=== PATIENT | female | born 1985 | race Caucasian/White ===

== ENCOUNTER 2023-06-06 11:10 | Emergency (ER) | payer BC, MEDICAID, SELFPAY ==
[2023-06-06] VITALS (36 sets, daily range): BP systolic 117–187; BP diastolic 86–125; PULSE 62–100; RESP 15–25; TEMP 36.5; O2SAT 98; BMI 22.5
--- NOTE | 2023-06-06 11:33 | ECG_ITS ---
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
--- NOTE | 2023-06-06 11:33 | ED.GENADUL1 ---
HPI - General Adult General Chief complaint: Headache Stated complaint: HIGH BLOOD PRESSURE/HEADACHE/NAUSEOUS Time Seen by Provider: 06/06/23 11:33 Source: patient Mode of arrival: walk-in Limitations: no limitations History of Present Illness HPI narrative: patient has been measuring high BP for the last 2 weeks. She also has history of migraines that developed about 9 years ago. She presents with headache for the last 2-3 days and also has high BP today. Slight nausea without vomiting. No recent injury to the head or neck. No visual changes or ringing in the ears. She does not take anything for HTN and has never been diagnosed with HTN. Related Data Home Medications Medication Instructions Recorded Confirmed buspirone 5 mg tablet 5 mg PO BID 06/06/23 06/06/23 fluoxetine 40 mg capsule 40 mg PO DAILY 06/06/23 06/06/23 norethindrone 1 mg-ethinyl 1 tab PO DAILY 06/06/23 06/06/23 estradiol 20 mcg (21)-iron 75 mg (7) tablet (Junel FE 11/02 (28)) topiramate 50 mg tablet (Topamax) 50 mg PO DAILY 06/06/23 06/06/23 Previous Rx's Medication Instructions Recorded lisinopril 10 mg tablet 10 mg PO DAILY #30 tabs 06/06/23 sumatriptan succinate 50 mg tablet 50 mg PO Q2H PRN migraine headache 06/06/23 (Imitrex) #20 tabs Allergies Allergy/AdvReac Type Severity Reaction Status Date / Time No Known Drug Allergies Allergy Verified 06/06/23 11:20 PFSH PFSH Social History Smoking status: Never smoker Exam Narrative Exam Narrative: Nurses notes and vital signs reviewed and patient is not hypoxic. afebrile General: Well-appearing and in no apparent distress. Skin: Warm, dry, no pallor noted. Head: Normocephalic, atraumatic. Neck: Supple, non-tender. Eye: Pupils are equal, round and EOMI. No scleral icterus. no nystagmus Cardiovascular: Regular Rate and Rhythm without murmur, gallop or rub. Respiratory: No accessory muscle use or respiratory distress. Lungs are clear to auscultation, no wheezing, rales or rhonchi Musculoskeletal: normal ROM Neurological: A&O x4. No cranial nerve dysfunction observed. No truncal ataxia. Moves all extremities. Sensation intact. Psychiatric: Cooperative and interactive. Normal mood and affect. Constitutional Vital Signs, click to edit/add: Last Vital Signs Temp 97.7 F 06/06/23 11:20 Pulse 78 06/06/23 15:20 Resp 19 06/06/23 15:20 BP 139/99 H 06/06/23 15:00 Pulse Ox 98 06/06/23 11:21 O2 Del Method Room Air 06/06/23 11:20 Course Vital Signs Vital signs: Vital Signs Temperature 97.7 F 06/06/23 11:20 Pulse Rate 100 H 06/06/23 11:20 Respiratory Rate 18 06/06/23 11:20 Blood Pressure 150/110 H 06/06/23 11:20 Pulse Oximetry 98 06/06/23 11:20 Oxygen Delivery Method Room Air 06/06/23 11:20 Temperature 97.7 F 06/06/23 11:20 Pulse Rate 78 06/06/23 15:20 Respiratory Rate 19 06/06/23 15:20 Blood Pressure 139/99 H 06/06/23 15:00 Pulse Oximetry 98 06/06/23 11:21 Oxygen Delivery Method Room Air 06/06/23 11:20 Medical Decision Making MDM Narrative Medical decision making narrative: Patient was placed on electronic device monitor and EKG obtained. Blood drawn and sent for evaluation. the patient was ordered to receive IV labetalol for her hypertension. She is also ordered to receive IV Toradol and IV Zofran for her headache. Potassium slightly decreased so she was given oral Potassium. No improvement in the patient's symptoms after receiving the first round of meds. She was ordered to receive IV benadryl and solumedrol. Her BP only minimally decreased so I ordered her to receive low dose IV Vasotec. This helped bring her BP closeer to desired level. Patient sill head unchaged headache and receive multiple rounds of meds. She finally got some improvement from 8/10 at arrival to 02/20. She then received IV Magnesium and her headache further improved. Plan is to place the patient on oral Lisinopril and have her follow up with her PCP. ED return for any worrisome symptoms. Lab Data Lab results reviewed: Yes I reviewed the patient's lab results Labs: Lab Results 06/06/23 Range/Units 11:24 WBC 6.7 (4.0-11.0) 10^3/uL RBC 4.72 (4.20-5.40) 10^6/uL Hgb 14.7 (12.0-16.0) g/dL Hct 42.5 (36.0-48.0) % MCV 90.0 (81.0-99.0) fL MCH 31.1 (26.7-34.0) pg MCHC 34.6 (29.9-35.2) g/dL RDW 12.9 (11.0-15.0) % Plt Count 311 (150-450) 10^3/uL MPV 10.1 (9.5-13.5) fL Neut % (Auto) 63.8 (43.0-75.0) % Lymph % (Auto) 26.4 (20.5-60.0) % [place] % (Auto) 7.8 (1.7-12.0) % Eos % (Auto) 0.9 (0.9-7.0) % Baso % (Auto) 1.0 (0.2-2.0) % Neut # (Auto) 4.3 (1.4-6.5) 10^3/uL Lymph # (Auto) 1.8 (1.2-3.8) 10^3/uL [place]field # (Auto) 0.5 (0.3-0.8) 10^3/uL Eos # (Auto) 0.1 (0.0-0.7) 10^3/uL Baso # (Auto) 0.1 (0.0-0.1) 10^3/uL Abs Immat Gran (auto) 0.01 (0.00-0.03) 10^3/uL Imm/Tot Granulo (auto) 0.1 (0.0-0.5) % Sodium 140 (136-145) mmol/L Potassium 3.2 L (3.5-5.1) mmol/L Chloride 103 (98-107) mmol/L Carbon Dioxide 26.0 (21.0-32.0) mmol/L Anion Gap 14.2 BUN 8.0 (7.0-18.0) mg/dL Creatinine 0.82 (0.55-1.02) mg/dL Est GFR ( Amer) >60 (>=60) Est GFR (Non-Af Amer) >60 (>=60) BUN/Creatinine Ratio 9.8 Glucose 105 (74-106) mg/dL Calcium 8.5 (8.5-10.1) mg/dL ECG Data Attestation: I personally reviewed and interpreted this ECG as follows: Interpretation: EKG interpretation: Emergency Department physician interpretation. Normal sinus rhythm at 85bpm. Normal axis, normal intervals and no ST segment elevation or depression. normal EKG. Discharge Plan Discharge Chief Complaint: Headache Clinical Impression: Headache, High blood pressure Patient Disposition: Home, Self-Care Time of Disposition Decision: 15:39 Prescriptions / Home Meds: New lisinopril 10 mg tablet 10 mg PO DAILY Qty: 30 0RF sumatriptan succinate [Imitrex] 50 mg tablet 50 mg PO Q2H PRN (Reason: migraine headache) Qty: 20 0RF Rx Instructions: do not exceed 4 doses per 24 hrs No Action topiramate [Topamax] 50 mg tablet 50 mg PO DAILY buspirone 5 mg tablet 5 mg PO BID fluoxetine 40 mg capsule 40 mg PO DAILY norethindrone-e.estradiol-iron [June FE 11/02 (28)] 1 mg-20 mcg (21)/75 mg (7) tablet 1 tab PO DAILY Instructions: Acute Headache (ED), Hypertension (ED) Stand Alone Forms: Portal Instructions Referrals: BERNARDO VILLAVICENCIO [Primary Care Provider] - 1 week
[2023-06-06 12:00] LABS: Basophils Absolute Auto 0.1 10^3/uL (0.0-0.1); Eosinophils Absolute Auto 0.1 10^3/uL (0.0-0.7); Eosinophils Percent Auto 0.9 % (0.9-7.0); Hematocrit 42.5 % (36.0-48.0); Hemoglobin 14.7 g/dL (12.0-16.0); Immature Granulocytes Abs Auto 0.01 10^3/uL (0.00-0.03); Immature Granulocytes Pct Auto 0.1 % (0.0-0.5); Lymphocytes Absolute Auto 1.8 10^3/uL (1.2-3.8); Lymphocytes Percent Auto 26.4 % (20.5-60.0); Mean Corpuscular HGB Conc 34.6 g/dL (29.9-35.2); Mean Corpuscular Hemoglobin 31.1 pg (26.7-34.0); Mean Platelet Volume 10.1 fL (9.5-13.5); Monocytes Absolute Auto 0.5 10^3/uL (0.3-0.8); Monocytes Percent Auto 7.8 % (1.7-12.0); Neutrophils Absolute Auto 4.3 10^3/uL (1.4-6.5); Neutrophils Percent Auto 63.8 % (43.0-75.0); Platelet Count 311 10^3/uL (150-450); Red Blood Count 4.72 10^6/uL (4.20-5.40); Red Cell Distribution Width 12.9 % (11.0-15.0); White Blood Count 6.7 10^3/uL (4.0-11.0)
[2023-06-06 12:03] LABS: Anion Gap 14.2; BUN Creatinine Ratio 9.8; Calcium 8.5 mg/dL (8.5-10.1); Chloride 103 mmol/L (98-107); Estimated GFR (African America >60 (>=60); Estimated GFR (Non-African Ame >60 (>=60); Glucose 105 mg/dL (74-106); Potassium 3.2 mmol/L (3.5-5.1); Sodium 140 mmol/L (136-145)
[2023-06-06] MEDS: KETOROLAC TROMETHAMINE 30 MG/ML VIAL IVP (12:25)
[2023-06-06] MEDS: LABETALOL HCL 20 MG/4 ML SYRINGE IVP (12:25)
[2023-06-06] MEDS: ONDANSETRON PF 4 MG/2 ML VIAL IV ×2 (12:26→13:57)
[2023-06-06] MEDS: POTASSIUM CHLORIDE 10 MEQ ER TABLET 40 MEQ PO (12:43)
[2023-06-06] MEDS: METHYLPREDNISOLONE SOD SUCC PF 125 MG/2 ML VIAL IVP (13:29)
[2023-06-06] MEDS: ENALAPRILAT DIHYDRATE 1.25 MG/ML VIAL 0.625 MG IV (13:30)
[2023-06-06] MEDS: DIPHENHYDRAMINE HCL 50 MG/ML (1ML) VIAL 25 MG IV (13:30)
[2023-06-06] MEDS: PROMETHAZINE HCL 25 MG/ML VIAL 12.5 MG IV (13:56)
[2023-06-06] MEDS: MAGNESIUM SULFATE/D5W 1 GM/100 ML PIGGYBACK IV (15:31)
== END 2023-06-06 16:22 | disposition home or self-care (01) ==
PROVIDERS: Emergency Provider Emergency Medicine; PCP Nurse Practitioner Family
DX: R51.9 Headache, unspecified (principal); I10 Essential (primary) hypertension; Z79.899 Other long term (current) drug therapy
CPT/HCPCS: 36415; 80048; 85025; 93005; 96365; 96375; 96376; 99285; J2930

== ENCOUNTER 2023-07-08 08:30 | Outpatient (OUT) | payer BC, MEDICAID, SELFPAY ==
[2023-07-08 08:49] LABS: Alanine Aminotransferase 26 U/L (14-59); Albumin Level 3.6 g/dL (3.4-5.0); Alkaline Phosphatase 71 U/L (46-116); Anion Gap 14.1; Aspartate Amino Transferase 15 U/L (15-37); BUN Creatinine Ratio 13.2; Bilirubin Total 0.4 mg/dL (0.2-1.0); Calcium 8.6 mg/dL (8.5-10.1); Carbon Dioxide 24.5 mmol/L (21.0-32.0); Chloride 105 mmol/L (98-107); Estimated GFR (African America >60 (>=60); Estimated GFR (Non-African Ame >60 (>=60); Globulin 3.6 g/dL; Glucose 99 mg/dL (74-106); Potassium 3.6 mmol/L (3.5-5.1); Sodium 140 mmol/L (136-145); Total Protein 7.2 g/dL (6.4-8.2)
== END 2023-07-08 08:31 | disposition home or self-care (01) ==
LOC: LAB 08:30
PROVIDERS: PCP Nurse Practitioner Family; Visit Provider Nurse Practitioner Family
DX: I10 Essential (primary) hypertension (principal)
CPT/HCPCS: 36415; 80048; 80053

== ENCOUNTER 2024-04-30 07:29 | Outpatient (OUT) | payer BC, SELFPAY ==
[2024-04-30 07:55] LABS: Basophils Absolute Auto 0.1 10^3/uL (0.0-0.1); Basophils Percent Auto 0.8 % (0.2-2.0); Eosinophils Absolute Auto 0.1 10^3/uL (0.0-0.7); Eosinophils Percent Auto 1.5 % (0.9-7.0); Hematocrit 42.2 % (36.0-48.0); Hemoglobin 14.2 g/dL (12.0-16.0); Immature Granulocytes Abs Auto 0.01 10^3/uL (0.00-0.03); Immature Granulocytes Pct Auto 0.1 % (0.0-0.5); Lymphocytes Absolute Auto 2.7 10^3/uL (1.2-3.8); Lymphocytes Percent Auto 36.8 % (20.5-60.0); Mean Corpuscular HGB Conc 33.6 g/dL (29.9-35.2); Mean Corpuscular Hemoglobin 30.8 pg (26.7-34.0); Mean Corpuscular Volume 91.5 fL (81.0-99.0); Mean Platelet Volume 9.6 fL (9.5-13.5); Monocytes Absolute Auto 0.6 10^3/uL (0.3-0.8); Monocytes Percent Auto 8.6 % (1.7-12.0); Neutrophils Absolute Auto 3.9 10^3/uL (1.4-6.5); Neutrophils Percent Auto 52.2 % (43.0-75.0); Platelet Count 314 10^3/uL (150-450); Red Blood Count 4.61 10^6/uL (4.20-5.40); Red Cell Distribution Width 12.6 % (11.0-15.0); White Blood Count 7.4 10^3/uL (4.0-11.0)
[2024-04-30 09:03] LABS: Alanine Aminotransferase 19 U/L (14-59); Albumin Level 3.5 g/dL (3.4-5.0); Alkaline Phosphatase 77 U/L (46-116); Aspartate Amino Transferase 14 U/L (15-37); BUN Creatinine Ratio 12.5; Bilirubin Total 0.5 mg/dL (0.2-1.0); Calcium 8.6 mg/dL (8.5-10.1); Carbon Dioxide 29.6 mmol/L (21.0-32.0); Chloride 103 mmol/L (98-107); Chol HDL Ratio 2.6; Cholesterol 146 mg/dL (<=200); Estimated GFR (African America >60 (>=60); Estimated GFR (Non-African Ame >60 (>=60); Globulin 3.5 g/dL; Glucose 95 mg/dL (74-106); HDL Cholesterol 57 mg/dL (40-60); Potassium 3.6 mmol/L (3.5-5.1); Sodium 139 mmol/L (136-145); Thyroid Stimulating Hormone 1.533 uIU/mL (0.358-3.740); Triglycerides 45 mg/dL (<=150)
[2024-04-30 11:27] LABS: Creatinine Urine Random 233.22 mg/dL (20.00-300.00); Microalbumin Urine Random <1.3 mg/dL (<=30.0)
== END 2024-04-30 07:30 | disposition home or self-care (01) ==
LOC: LAB 07:29
PROVIDERS: PCP Nurse Practitioner Family; Visit Provider Nurse Practitioner Family
DX: Z00.00 Encounter for general adult medical examination without abnormal findings (principal); I10 Essential (primary) hypertension; F41.8 Other specified anxiety disorders; G43.909 Migraine, unspecified, not intractable, without status migrainosus
CPT/HCPCS: 36415; 80053; 80061; 82043; 82570; 84443; 85025

== ENCOUNTER 2024-12-15 08:24 | Outpatient (OUT) | payer BC, SELFPAY ==
--- NOTE | 2024-12-15 09:20 | ECG_ITS ---
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 Measurements Intervals [place] Rate: 79 P: 58 [place]: 170 QRS: 75 QRSD: 71 T: 71 QT: 345 QTc: 397 Interpretive Statements SINUS RHYTHM Compared to ECG 06/06/2023 11:29:53 No significant changes Electronically Signed On 12-15-2024 13:06:06 EST by DEANDRA HINOJOSA M.D.
== END 2024-12-15 08:25 | disposition home or self-care (01) ==
LOC: PST 08:25
PROVIDERS: PCP Nurse Practitioner Family; Visit Provider Obstetrics & Gynecology
DX: Z01.810 Encounter for preprocedural cardiovascular examination (principal); N92.0 Excessive and frequent menstruation with regular cycle; N93.9 Abnormal uterine and vaginal bleeding, unspecified; R10.2 Pelvic and perineal pain; R87.810 Cervical high risk human papillomavirus (HPV) DNA test positive
CPT/HCPCS: 93005

== ENCOUNTER 2024-12-25 11:10 | Day surgery (SDC) | payer BC, SELFPAY ==
[2024-12-15 10:17] VITALS: BP 118/83; PULSE 89; TEMP 36.4; O2SAT 98; BMI 23.1
[2024-12-25] VITALS (11 sets, daily range): BP systolic 93–122; BP diastolic 65–88; PULSE 93–126; TEMP 36.3–36.6; O2SAT 97–100; BMI 23.1
[2024-12-25 11:22] LABS: Basophils Absolute Auto 0.1 10^3/uL (0.0-0.1); Basophils Percent Auto 0.9 % (0.2-2.0); Eosinophils Absolute Auto 0.1 10^3/uL (0.0-0.7); Eosinophils Percent Auto 1.2 % (0.9-7.0); Hematocrit 41.9 % (36.0-48.0); Hemoglobin 14.2 g/dL (12.0-16.0); Immature Granulocytes Abs Auto 0.01 10^3/uL (0.00-0.03); Immature Granulocytes Pct Auto 0.2 % (0.0-0.5); Lymphocytes Absolute Auto 1.7 10^3/uL (1.2-3.8); Lymphocytes Percent Auto 29.4 % (20.5-60.0); Mean Corpuscular HGB Conc 33.9 g/dL (29.9-35.2); Mean Corpuscular Hemoglobin 30.3 pg (26.7-34.0); Mean Corpuscular Volume 89.3 fL (81.0-99.0); Mean Platelet Volume 9.7 fL (9.5-13.5); Monocytes Absolute Auto 0.5 10^3/uL (0.3-0.8); Neutrophils Absolute Auto 3.4 10^3/uL (1.4-6.5); Neutrophils Percent Auto 59.3 % (43.0-75.0); Platelet Count 290 10^3/uL (150-450); Red Blood Count 4.69 10^6/uL (4.20-5.40); Red Cell Distribution Width 12.6 % (11.0-15.0); White Blood Count 5.8 10^3/uL (4.0-11.0)
[2024-12-25 11:49] LABS: HCG Quantitative <1 mIU/mL
[2024-12-25] MEDS: LACTATED RINGER'S SOLUTION 1,000 ML 50 ML IV ×2 (11:51→17:30)
--- NOTE | 2024-12-25 16:30 | PC.NURSE ---
Patient states she has no pain
--- NOTE | 2024-12-25 16:48 | PM.ONB ---
Brief Operative Note Date of procedure: 12/25/24 Pre-op diagnosis general: cervical dysplasia, aub, menorrhagia, dyspareunia, pelvic pressure, pvc syndrome Post-op diagnosis: same as pre-op Procedure: NAME OF PROCEDURE: robotic assisted Laparoscopic bilateral salpingectomy, with Madelyn endometrial ablation with hysteroscopy. leep procedure PROCEDURE: The patient was taken back to the OR where she was prepped and draped in the normal sterile fashion after being placed in the dorsal lithotomy position, after being placed under general anesthesia without difficulty. a weighted speculum was then placed into the vagina. Pap and endometrial bx were performed without difficultyThe anterior lip was grasped with a single tooth tenaculum. The patient was then sounded to approximatley 9cm. The patient was gently sounded using Hegar dilators and the hysteroscope was passed through the cervix into the uterus where both ostia were seen. No gross evidence of polyps, fibroids or malignancy. The cervical length was noted to be 4cm. The Madelyn ablation apparatus was set to approximately 5cm in length. This was placed in through the cervix and into the uterus. After the seal was tested, at that time the total ablation of 120 seconds was performed with the Madelyn without difficulty. All instruments were removed from the vagina. please note endometrial bx was performed prior to ablation using pipette, then leep was performed A weighted speculum was placed into the patient's vagina. The anterior lip of the cervix was identified and grasped with a single-tooth tenaculum. The patient's cervix was then copiously irrigated using vinegar.? Then, a Lugol Solution was also placed onto the patient's cervix which demonstrated increased uptake of the Lugol solution at the [? 4] o?clock and [? 11] o?clock positions.? At that time, the LEEP portion of the procedure was performed, including both the [? 4] o?clock and [11? ] o?clock positions. The ectocervix was sent out to Pathology. The patient's cervix was then coagulated using suction cautery. Excellent hemostasis was assured.? Monsel Solution was then placed onto the patient's cervix to help maintain adequate hemostasis. All instruments were removed from the patient's vagina. A wet sponge stick was placed into the patient's vagina. Attention was then turned to the patient's abdomen, where a scalpel was used to make a small infraumbilical incision. The S retractors were then used to dissect the underlying layers until the fascia could be seen. The fascia was then grasped with Miguelangel clamps and tented up. A knife was then used to make a small incision to the fascia. The muscle was identified, at that time two sutures of #0 Vicryl on a GI needlewas then used and placed through the fascia. The peritoneum was then identified and entered bluntly. The 10-4 Payam was then placed into the patient's abdomen. This was confirmed with direct visualization of the bowel, using the laparoscope. The patient's abdomen was then insufflated using approximately 4 liters of CO2 gas. Survey of the patient's abdomen demonstrated normal appearing ovaries, uterus and tubes. A second and third lateral robotic ports, which was 8mm in size, was then placed laterally after incision was made in the skin under direct visualization. the robotic arms were engaged. The patient's tube on the patient's right side was identified. The tube was then tented up using a grasper. The ligasure was used to transect and coagulate the mesosalpingx from the fimbriated end to the insertion at the uterus, the tube was amputated and removed in its entirety.? Excellent hemostasis was noted. ?This was performed on the contralateral sideas well. The lateral ports were then moved under direct visualization with excellent hemostasis. The abdomen was deinsufflated. All instruments were removed from the patient's abdomen. The fascia was closed using the #0 Vicryl on GI needle. The skin was closed using 4-0 Vicryl subcuticularly. All instruments were removed from the patient's vagina as well. The patient was taken out of the dorsal lithotomy position and placed in the supine position and taken to recovery in stable condition. Sponge, lap and needle counts were correct x2. ??? Anesthesia: KYAW Surgeon: Ephraim Spencer Tractor Engine Mechanic: Mimi Sandra Estimated blood loss (mL): 10 Pathology: other (tubes and ectocervical tissue) Condition: stable Disposition: PACU Urinary Catheter Management Urinary Catheter Management Urethral: Cath placed during this visit: no
[2024-12-25] MEDS: HYDROCODONE/ACET 5-325 MG TABLET 1 TAB PO (18:13)
== END 2024-12-25 18:18 | disposition home or self-care (01) ==
PROVIDERS: Visit Provider Obstetrics & Gynecology
PROC: (CPT 840; principal; 2024-12-25 12:35)
PROC: (CPT 840; 2024-12-25 12:35)
PROC: (CPT 840; 2024-12-25 12:35)
DX: Z30.2 Encounter for sterilization (principal); N92.0 Excessive and frequent menstruation with regular cycle; N93.9 Abnormal uterine and vaginal bleeding, unspecified; R10.2 Pelvic and perineal pain; N87.9 Dysplasia of cervix uteri, unspecified; R87.810 Cervical high risk human papillomavirus (HPV) DNA test positive; I10 Essential (primary) hypertension; N94.89 Other specified conditions associated with female genital organs and menstrual cycle
CPT/HCPCS: 57522; 58563; 58661; 36415; 84702; 85025; 88302; 88305; 88307; J0131; J1100; J1171; J1885; J2250; J2371; J2405; J2704; J3010

== ENCOUNTER 2025-08-22 08:50 | Emergency (ER) | payer BC, SELFPAY ==
[2025-08-22 08:55] VITALS: BP 142/99; PULSE 111; O2SAT 98; BMI 20.9
--- OUTSIDE RECORDS SUMMARY | 2025-08-22 09:00 | XMS_ITS | CCD ---
Author Organization [facility] Care Team Providers Care Lithographic General Worker Name Role Phone Bell Iglesias Unavailable Kaple, Yolanda Unavailable KAPLE, YOLANDA Admitting Unavailable KAPLE, YOLANDA Attending Unavailable KAPLE, YOLANDA Primary Care Unavailable KAPLE, YOLANDA Consulting Unavailable KAPLE, YOLANDA Admitting Unavailable KAPLE, YOLANDA Attending Unavailable KAPLE, YOLANDA Primary Care Unavailable KAPLE, YOLANDA Consulting Unavailable KAPLE, YOLANDA Admitting Unavailable KAPLE, YOLANDA Attending Unavailable KAPLE, YOLANDA Primary Care Unavailable KAPLE, YOLANDA Consulting Unavailable GINA BRUNER M Referring Unavailable KAPLE, YOLANDA M Primary Care Unavailable KAPLE, YOLANDA M Referring Unavailable KAPLE, YOLANDA M Primary Care Unavailable KAPLE, YOLANDA M Referring Unavailable KAPLE, YOLANDA M Primary Care Unavailable Kaple Yolanda T[place]O Primary Care Provider KAPLE, YOLANDA M Primary Care Unavailable MARC, EMELYN M Referring Unavailable MARC, EMELYN M Attending Unavailable MARC, EMELYN M Referring Unavailable KAPLE, YOLANDA M Primary Care Unavailable MARC, EMELYN M Attending Unavailable MARC, EMELYN M Referring Unavailable KAPLE, YOLANDA M Primary Care Unavailable Unavailable Primary Care Provider Unavailabl e Kaple Yolanda TINOCO Primary Care Provider Ephraim Spencer DO Attending Provider Kaple, Yolanda Primary Care Unavailable Tj, Ephraim Attending Unavailable Tj, Ephraim Admitting Unavailable TJ, EPHRAIM Attending Unavailable TJ, EPHRAIM Attending Unavailable CLAIRE WALSH Attending Unavailable TJ, EPHRAIM Attending Unavailable Yolanda Yancey APRN Primary Care Provider Yolanda Yancey APRN Attending Provider Medications Current Medications MedicationDrug Class(es)DatesSig (Normalized)Sig (Original)amoxicillin 875 mg oral tablet (1 source)Penicillin-class AntibacterialStart: 41-32-7644crji 1 tablet by mouth every twelve hoursAmoxicillin 875 MG 1 tablet Orally every 12 hrs for 7 days Sep, ActiveAmoxicillin / Clavulanate (4 sources)Penicillin-class AntibacterialStart: 86-17-4541dzyo 1 tablet by mouth every twelve hoursAugmentin 875-125 MG 1 tablet Orally every 12 hrs for 10 days Nov, Activecephalexin 500 mg oral tablet (4 sources)Cephalosporin AntibacterialStart: 67-00-3425ener 1 tablet by mouth every eight hoursCephalexin 500 MG 1 tablet Orally every 8 hrs for 7 days Dec, Activedicyclomine hydrochloride 10 mg oral capsule (3 sources)AnticholinergicStart: 22-68-6326phpz 1 capsule by mouth three times daily as needed for paindicyclomine (Bentyl) 10 MG capsule Indications: Pelvic pain in female Take 1 capsule (10 mg) by mouth 3 (three) times a day as needed (pelvic pain) for up to 30 doses 30 capsule 03/29/2025 Activefluconazole 150 mg oral tablet (1 source)Azole AntifungalStart: 08-29-2024 End: 61-41-2733nyvy 1 tablet by mouth oncefluconazole (DIFLUCAN) 150 mg tablet Indications: Yeast infection of the vagina Take 1 tablet (150 mg total) by mouth once for 1 dose. 1 tablet 08/29/2024 08/29/2024 ActiveFLUoxetine 10 mg oral tablet (20 sources)Serotonin Reuptake InhibitorStart: 14-60-2606fxht 1 tablet by mouth once dailyFluoxetine 10 mg tablet Active 10 MG PO Daily April 18, 2025 12:00am Complies with drug therapyStart: 84-70-3895hoji 1 capsule by mouth once dailyFLUoxetine (PROzac) 40 MG capsule Take 40 mg by mouth Daily 10/08/2024 ActiveStart: 07-06-2024 End: 97-91-2200sltz 1 capsule by mouth once dailyFluoxetine 40 mg capsule Discontinued 0 .ROUTE .COMPLEX 90 July 06, 2024 4:21pm March 17, 2025 10:09am TAKE 1 CAPSULE BY MOUTH EVERY DAYStart: 04-23-2024 End: 34-54-1638jvmy 1 capsule by mouth once dailyFluoxetine 40 mg capsule Discontinued 40 MG PO Daily April 23, 2024 7:22am July 06, 2024 4:21pm Start: 12-23-2023 End: 44-81-5974ayny 1 capsule by mouth once dailyFluoxetine 40 mg capsule Discontinued 0 .ROUTE .COMPLEX 90 December 23, 2023 7:17am April 23, 2024 7:22am TAKE 1 CAPSULE BY MOUTH EVERY DAYStart: 12-23-2023 End: 39-85-9982sshs 1 capsule by mouth once dailyFluoxetine 40 mg capsule Discontinued 1 CAP PO Daily December 23, 2023 12:00am December 23, 2023 7:17am FreeTextSig: TAKE 1 CAPSULE BY MOUTH EVERY DAY; Note: Source Status: Taking; Refills: 1; Qty: 90 Capsule; Provider: Martin Guerrero ( )Start: 76-76-3134agcd 1 capsule by mouth every twenty-four hoursFLUoxetine HCl 40 MG 1 capsule Orally Once a day for 30 day(s) Apr, Activetake 2 capsules by mouth in the morningFLUoxetine (PROzac) 20 mg capsule Take 2 capsules (40 mg total) by mouth in the morning. Activetake 1 capsule by mouth every twenty-four hoursFluoxetine 20 MG 1 capsule in the morning Orally Once a day ActiveJunel (3 sources) ActiveJunel 11/02 (2 sources)11/02 Activemedical supply, miscellaneous ([facility] (5 sources)medical supply, miscellaneous ([facility] by miscellaneous route. Clindamycin ActivemethylPREDNISolone (10 sources)CorticosteroidStart: 27-81-7604wckqywDBCKKIQdqgvz (Medrol Dospak) 4 MG tablets Indications: URI, acute Day 1: 6 tablets Day 2: 5 tablets Day 3: 4 tablets Day 4: 3 tablets Day 5: 2 tablets Day 6: 1 tablet 21 tablet 12/31/2024 ActiveStart: 94-76-0116wdlwnuOLMHNVEfflnv 4 MG as directed Orally Once a day for 6 days Sep, ActiveStart: 35-32-0971zstjbyRAVNSLGumzir 4 MG as directed Orally Once a day for 6 days Dec, ActivemetroNIDAZOLE 500 mg oral tablet (2 sources)Nitroimidazole AntimicrobialStart: 08-29-2024 End: 96-79-0287kgva 1 tablet by mouth at bedtimemetroNIDAZOLE (FLAGYL) 500 mg tablet Indications: BV (bacterial vaginosis) Take 1 tablet (500 mg total) by mouth in the morning and at bedtime for 7 days. 14 tablet 08/29/2024 09/05/2024 ActiveStart: 28-62-3828zvww 1 tablet by mouth every twelve hoursmetroNIDAZOLE 500 MG 1 tablet Orally Twice a day for 7 days Aug, Activeminocycline 100 mg oral capsule (5 sources)Tetracycline-class Drugtake 1 capsule by mouth once dailyminocycline (MINOCIN,DYNACIN) 100 mg capsule Take 100 mg by mouth daily. Activenorethindrone 0.35 mg oral tablet (17 sources)Start: 99-23-6876xgct 1 tablet by mouth in the morningnorethindrone (Micronor) 0.35 MG tablet Take 0.35 mg by mouth in the morning. 09/30/2024 ActiveStart: 51-81-6490ukdv 1 tablet by mouth in the morningnorethindrone (MICRONOR) 0.35 mg tablet Indications: Surveillance of contraceptive pill Take 1 tablet (0.35 mg total) by mouth in the morning. 28 tablet 09/15/2024 Active Start: 09-03-2023 End: 00-45-2094htmo 1 tablet by mouth in the morningnorethindrone (MICRONOR) 0.35 mg tablet Indications: Well woman exam with routine gynecological exam Take 1 tablet (0.35 mg total) by mouth in the morning. 28 tablet 12 09/03/2023 09/15/2024 Discontinued (Reorder)SUMAtriptan 25 mg oral tablet (5 sources)Serotonin-1b and Serotonin-1d Receptor AgonistSUMAtriptan (IMITREX) 25 mg tablet Take 1 tablet (25 mg total) by mouth once as needed for migraine. May repeat in 2 hours if unresolved. Do not exceed 200 mg in 24 hours. Active topiramate 25 mg oral tablet (18 sources)Start: 53-50-9175trmz 1 tablet by mouth every twenty-four hours Topiramate 25 MG 1 tablet Orally Once a day for 30 day(s) Apr, Active take 1 tablet by mouth in the morning, then take 1 tablet by mouth at bedtime topiramate (TOPAMAX) 50 mg tablet Take 1 tablet (50 mg total) by mouth in the morning and 1 tablet (50 mg total) before bedtime. ActiveUbrelvy 100 MG (1 source)Start: 28-92-5579Tcfvojv 100 MG 1 tablet may take second dose at least 2 hours after first dose as needed Orally Once a day for 30 day(s) May, ActivevalACYclovir 500 mg oral tablet (17 sources)Herpesvirus Nucleoside Analog DNA Polymerase Inhibitor, Herpes Simplex Virus Nucleoside Analog DNA Polymerase Inhibitor, Herpes Zoster Virus Nucleoside Analog DNA Polymerase InhibitorStart: 09-30-2024 End: 34-76-1611erqIBEperaeg (Valtrex) 500 MG tablet Take 500 mg by mouth if needed (as needed) 11/04/2024 ActiveStart: 12-27-2959lffa 1 tablet by mouth in the morning, then take 1 tablet by mouth at bedtimevalACYclovir (VALTREX) 500 mg tablet Indications: HSV (herpes simplex virus) anogenital infection Take 1 tablet (500 mg total) by mouth in the morning and 1 tablet (500 mg total) before bedtime. 60 tablet 3 02/01/2023 Active Completed/Discontinued Medications MedicationDrug Class(es)DatesSig (Normalized)Sig (Original)azithromycin 250 mg oral tablet (5 sources)Macrolide AntimicrobialStart: 12-31-2024 End: 28-58-1051bfiuxqyubzif (Zithromax Z-Michael) 250 MG tablet Indications: URI, acute As directed 6 tablet 12/31/2024 03/29/2025 Discontinued (Therapy completed)busPIRone hydrochloride 5 mg oral tablet (20 sources)Start: 04-23-2024 End: 01-54-4829qivp 1 tablet by mouth twice dailyBuspirone 5 mg tablet Discontinued 5 MG PO Twice daily April 23, 2024 7:35am April 23, 2024 7:37am Start: 04-23-2024 End: 99-20-2427tdid 1 tablet by mouth once dailyBuspirone 5 mg tablet Discontinued 5 MG PO Twice daily April 23, 2024 7:34am April 23, 2024 7:36am 5 mg orally daily;Start: 04-23-2024 End: 00-18-6478uusm 1 tablet by mouth twice dailyBuspirone 10 mg tablet Discontinued 10 MG PO Twice daily 60 April 23, 2024 12:00am March 17, 2025 10:09amStart: 02-27-2024 End: 79-18-3318zvms 1 tablet by mouth twice dailyBuspirone 5 mg tablet Discontinued 0 .ROUTE .COMPLEX 180 February 27, 2024 10:15am April 23, 2024 7:22am TAKE 1 TABLET BY MOUTH TWICE A DAYStart: 02-27-2024 End: 28-51-1305ctng 1 tablet by mouth twice dailyBuspirone Discontinued 0 .ROUTE .COMPLEX 180 February 27, 2024 10:15am April 23, 2024 7:22am TAKE 1 TABLET BY MOUTH TWICE A DAYStart: 04-26-2022 End: 07-21-1159ygyc 1 tablet by mouth twice dailyBuspirone 5 mg tablet Discontinued 1 TAB PO Twice daily February 27, 2024 12:00am February 27, 2024 10:15am FreeTextSig: TAKE 1 TABLET BY MOUTH TWICE A DAY; Note: Source Status: Taking; Refills: 1; Qty: 180 Tablet; Provider: Martin Guerrero ( ) escitalopram 5 mg oral tablet (3 sources)Serotonin Reuptake InhibitorStart: 04-13-2025 End: 79-30-2901jkvf 1 tablet by mouth once dailyEscitalopram Oxalate 5 mg tablet Discontinued 0 .ROUTE .COMPLEX 90 April 13, 2025 3:40pm April 18, 2025 9:58am TAKE 1 TABLET BY MOUTH EVERY DAYStart: 03-17-2025 End: 21-73-1570fzww 1 tablet by mouth once dailyEscitalopram Oxalate (Lexapro) 5 mg tablet Discontinued 5 MG PO Daily March 17, 2025 12:00am April 13, 2025 3:41pmNorethindrone-E.Estradiol-Iron (4 sources)EstrogenStart: 04-23-2024 End: 22-63-6754Vxotjtewyehad-E.Estradiol-Iron (11/02 (28)) 1 mg-20 mcg (21)/75 mg (7) tablet Discontinued TAB PO April 23, 2024 12:00am April 23, 2024 7:07am Medication Name: 11/02; Note: Source Status: Taking; Provider: Martin Guerrero ( )lisinopril 10 mg oral tablet (20 sources)Angiotensin Converting Enzyme InhibitorStart: 04-23-2024 End: 02-39-9744fhkt 1 tablet by mouth once dailyLisinopril 10 mg tablet Discontinued 10 MG PO Daily October 15, 2024 9:24am April 26, 2025 10:57am Start: 04-13-2024 End: 67-23-9736vedt 1 tablet by mouth once dailyLisinopril 10 mg tablet Discontinued 0 .ROUTE .COMPLEX April 13, 2024 11:28am April 23, 2024 7:22am TAKE 1 TABLET BY MOUTH DAILYStart: 07-09-2023 End: 86-01-5073jznp 1 tablet by mouth once dailyLisinopril 10 mg tablet Discontinued 1 TAB PO Daily January 10, 2024 12:00am January 10, 2024 2:25pm FreeTextSi tablet Orally Once a day; Note: Source Status: Refill; Refills: 1; Qty: 90 Tablet; Provider: Martin Guerrero MTriamcinolone (14 sources)CorticosteroidStart: 47-23-1333GKYARUQ - 10 mg Dec, 40 mg ubrogepant 100 mg oral tablet (5 sources)Start: 04-23-2024 End: 25-27-5458Wlfieuvgql 100 mg tablet Discontinued 1 TAB PO Daily April 23, 2024 12:00am April 23, 2024 7:07amFreeTextSi tablet may take second dose at least 2 hours after first dose as needed Orally Once a day; Note: Source Status: Continue; Refills: 2; Provider: Martin Guerrero MStart: 04-23-2024 End: 17-77-3067Beikouqpid Discontinued 1 TAB PO Daily April 23, 2024 12:00am April 23, 2024 7:07am FreeTextSi tablet may take second dose at least 2 hours after first dose as needed Orally Once a day; Note: Source Status: Continue; Refills: 2; Provider: Martin Schwartz 100 MG 1 tablet may take second dose at least 2 hours after first dose as needed Orally Once a day for 30 days Active Problems Active Problems Problem ClassificationProblemDateDocumented DateEpisodic/ChronicAbdominal pain (20 sources)Pelvic and perineal pain; Translations: [Pain in pelvis]Onset: 643835-79-5784BlencqszEzyirmy disorders (20 sources)Mixed anxiety and depressive disorder; Translations: [Other specified anxiety disorders]Onset: 04-23-2018 Resolved: 75-47-8130VtknlbiUmdydvuic infection; unspecified site (1 source)Other specified bacterial agents as the cause of diseases classified elsewhereEpisodicContraceptive and procreative management (2 sources)Oral contraception; Translations: [Encounter for surveillance of contraceptive pills]42-39-3869PtjccffnDzlghpxey hypertension (10 sources)Essential hypertension; Translations: [Essential (primary) hypertension]ChronicGenitourinary symptoms and ill-defined conditions (6 sources)Dysuria; Translations: [Unspecified abnormal findings in urine]Onset: 41-58-3950CplagrdnWujrrcgt; including migraine (20 sources)Migraine without aura, not refractory ; Translations: [Migraine without aura, not intractable, without status migrainosus]Onset: 05-10-2022 Resolved: 12-67-4244HylqqclYtqmxakdqfpr diseases of female pelvic organs (5 sources)Acute vaginitis; Translations: [Acute vaginitis]Onset: 08-27-2024 EpisodicMenstrual disorders (14 sources)Irregular periods; Translations: [Irregular menstruation, unspecified]Onset: 045280-91-5552RuymmzbMtcpq aftercare (2 sources)Surgical follow-up; Translations: [Encounter for follow-up examination after completed treatment for conditions other than malignant neoplasm]47-57-6229JnbmxcytTqxiv female genital disorders (1 source)Abnormal uterine bleeding; Translations: [Abnormal uterine and vaginal bleeding, unspecified]07-82-7552MywbuxaFeezk female genital disorders (2 sources)Other specified noninflammatory disorders of vagina; Translations: [Other specified noninflammatorydisorders of vagina]Onset: 24-66-8794Ufmroyik Other female genital disorders (2 sources)Vaginal discharge; Translations: [Other specified noninflammatory disorders of vagina]Onset: 761048-46-9397KrahjxaqHycmn nutritional; endocrine; and metabolic disorders (4 sources)Overweight in adulthood with body mass index of 25 or more but less than 30; Translations: [Body mass index (BMI) 26.0-26.9, adult]04-23-2024 EpisodicOther nutritional; endocrine; and metabolic disorders (1 source)Body mass index (BMI) 26.0-26.9, adult; Translations: [Body Mass Index 26.0-26.9, adult]61-66-6528KtuxhdkvHanha screening for suspected conditions (not mental disorders or infectious disease) (3 sources)Ultrasound scan abnormal; Translations: [Abnormal findings on diagnostic imaging of other specifiedbody structures]Onset: ChronicOther upper respiratory infections (3 sources)Acute maxillary sinusitis, unspecified; Translations: [Acute upper respiratory infection]Onset: 12-21-2021 Resolved: 36-60-7398NhgkxjfiVrorxo media and related conditions (1 source)Otitis media, unspecified, right earEpisodicResidual codes; unclassified (5 sources)History of bilateral breast implants; Translations: [Breast implant status]Onset: 587427-96-5977GtbekllSpjgrquv transmitted infections (not HIV or hepatitis) (1 source)Human papillomavirus deoxyribonucleic acid test positive, high risk on cervical specimen; Translations: [Cervical high risk human papillomavirus (HPV) DNA test positive]97-53-9985KfntrbacOvkxphcejtlr (3 sources)OTHER SPECIFIED COUGH; Translations: [OTHER SPECIFIED COUGH]Onset: 03-30-5751Jqvdbdreclon (1 source)Gynecologic ExamOnset: 03-48-5300Kvvwquy tract infections (1 source)Urinary tract infection, site not specifiedEpisodicViral infection (1 source)Anogenital herpesviral infection; Translations: [Anogenital herpesviral infection, unspecified]59-42-3681Rsacpbh Past or Other Problems Problem ClassificationProblemDateDocumented DateEpisodic/ChronicImmunizations and screening for infectious disease (1 source)Contact with and (suspected) exposure to other viral communicable diseasesOnset: 12-21-2021 Resolved: 91-46-0902PgyqdmshEifg disorders (5 sources)Mood disordersOnset: 09-03-2023 Resolved: 941869-95-7127Ppxgcvu (1 source)Candidiasis of vagina; Translations: [Yeast infection of the vagina] 95-58-9279AoqfsazyKdwkt circulatory disease (3 sources)Elevated blood-pressure reading, without diagnosis of hypertension; Translations: [ELEVATED BP READING W/O DX HTN]Onset: 05-10-2022 Resolved: 11-98-6622AikgtyyzXoatswue codes; unclassified (5 sources)H/O: ectopic ; Translations: [Personal history of other complications of , childbirth and the puerperium]Onset: 05-23-2021 21-01-4930DqyxjdlhJxwremmmezne (1 source)OTHER SPECIFIED COUGH; Translations: [OTHER SPECIFIED COUGH]Onset: 39-81-9021Reivlwssfcoe (2 sources)Onset: Results Test NameValueInterpretationReference RangeFacilityRECURRENT VAGINITIS (HTRX)on 29-79-5312CZWJMFKNP QMNWGCX74.41AbnormalNOMS HealthcareATOPOBIUM VAGINAEDetected AbnormalNOMS HealthcareBVAB 2,3 (BACTERIAL VAGINOSIS ASSOCIATED BACTERIA 2, 3); MOBILUNCUS OWH3PRSX HealthcareBVAB 2,3 (BACTERIAL VAGINOSIS ASSOCIATED BACTERIA 2, 3); MOBILUNCUS SPPNot detectedNOMS HealthcareCANDIDA ALBICANS, PARAPSILOSIS, CFYIVOOAEF9VXSW HealthcareCANDIDA ALBICANS, PARAPSILOSIS, TROPICALISNot detected NOMS HealthcareCANDIDA PKJSVQGZ9TZIU HealthcareCANDIDA GLABRATANot detectedNOMS HealthcareCANDIDA SMBOJC9GSCD HealthcareCANDIDA KRUSEINot detectedNOMS HealthcareCHLAMYDIA CGZOAFMXBYQ1RRWZ HealthcareCHLAMYDIA TRACHOMATISNot detected NOMS HealthcareERMB, C; MEFA16.78AbnormalNOMS HealthcareERMB, C; MEFADetected AbnormalNOMS HealthcareGARDNERELLA NQKDTHBHZ16.157AbnormalNOMS Healthcare GARDNERELLA VAGINALISDetectedAbnormalNOMS HealthcareInterpretation and review of laboratory resultsAbnormalNOMS HealthcareMEGASPHAERA (TYPES 1, 2)0NOMS HealthcareMEGASPHAERA (TYPES 1, 2)Not detectedNOMS HealthcareMYCOPLASMA TAGZGSIEFG6KCLU HealthcareMYCOPLASMA GENITALIUMNot detectedNOMS Healthcare NEISSERIA KEJFZJHUFYD9POHI HealthcareNEISSERIA GONORRHOEAENot detectedNOMS HealthcareTET B, TET M15.591AbnormalNOMS HealthcareTET B, TET MDetectedAbnormal NOMS HealthcareTRICHOMONAS VUGTUGDRT5RWOT HealthcareTRICHOMONAS VAGINALISNot detectedNOMS HealthcareNOMS HealthcareHCG ( test) Ql (U)on 03-29-2025 Interpretation and review of laboratory resultsNormalNONC HealthcarePreg Test, UrNegativeNegativeNOMS HealthcareNONC HealthcareUrinalysis macro (dipstick) panel (U)on 21-62-7694Xxksztczt, UANegativeNegative - 4(70) +++ mg/dLNOMS HealthcareBlood, UAPositiveNegative - 50 German/mcLNOMS HealthcareComment on above: traceClarity, UAClearNOMS HealthcareColor, UAYellowNOMS HealthcareGlucose, UA NegativeNegative - 2000(110) ++++ mg/dLNOMS HealthcareInterpretation and review of laboratory resultsAbnormalNONC HealthcareKetones, UANegativeNegative - 160(16) ++++ mg/dLNONC HealthcareLeukocytes, UAPositiveNegative - 500+++ Benjy/mcL NOMS HealthcareComment on above:smallNitrite, UANegativeNegative - PositiveNOMS HealthcarepH, UA75 - 9NOMS HealthcareProtein, UANegativeNegative - 2000(20) ++++ mg/dLNOMS HealthcareSpec Grav, UA1.021 - 1.03NOMS HealthcareUrobilinogen, UA0.2 0.2 - 12 mg/dLNOThedaCare [facility] Specimen: [id number] Received: 12/28/24 Status: LUIZA Khanna Num: [id number] Spec Type: Surgical Subm Dr: Ephraim Spencer Tissues: A Endocervix - Curettings (ENDOVERV CURRT) B Cone/Leep (ECTOCERV CONE) C Fallopian Tube - Sterilization (BILT FALL TUBE) Procedures: , Gross/Micro L5, Gross/Micro L4, Gross/Micro L2 Age/ Patient Sex Location Account Attending Physician Michelle Zuluaga 39/F [facility] [id number] Ephraim Spencer SPEC NUM: [id number] RECD: 12/28/24 STATUS: LUIZA MARIEAmol NUM: [id number] ANTONIETA: 12/25/[address]: Ephraim Spencer ENTERED: 12/28/[address] [facility] DR: Abdiel,Lab SPEC TYPE: Surgical DEPT: [facility] ENTERED BY: [id number] RECV BY: [id number] ORDERED: HE/12, Gross/Micro L5, Gross/Micro L4, Gross/Micro L2 ORDERED: HE/12, Gross/Micro L5, Gross/Micro L4, Gross/Micro L2 Pathological Diagnosis A, said to be endocervical biopsy tissue, endometrial ablation with Madelyn: -Mucus and blood clot with multiple small biopsy strips of the inactive to weakly proliferative type endometrial glandular epithelium and small mucosal tissue, exhibiting occasional mild ciliated metaplasia, without hyperplasia or atypia identified B, ectocervical tissue, LEEP excision: -Fragments of ectocervical mucosal tissue with mild squamous acanthosis including small foci of mild parabasal epithelial proliferation, suggesting minute foci of mild dysplasia, otherwise without any high-grade atypia identified -Transformation zone is focally represented -Focal mild chronic inflammation are also noticed consistent with active immune response C, bilateral fallopian tubes, bilateral salpingectomy: -Fimbriated longer fallopian tube without significant pathological changes -The smaller segment displays fibrovascular soft tissue with 1 tiny detached benign epithelial cluster without any other specific findings Specimen: [id number] Received: 12/28/24 Status: WMTiburcio Khanna Num: [id number] Spec Type: Surgical Subm Dr: Ephraim Spencer Tissues: A Endocervix - Curettings (ENDOVERV CURRT) B Cone/Leep (ECTOCERV CONE) C Fallopian Tube - Sterilization (BILT FALL TUBE) Procedures: HE/12, Gross/Micro L5, Gross/Micro L4, Gross/Micro L2 Patient: Michelle Zuluaga [id number] (Continued) Specimen: [id number] Received: 12/28/24 (Continued) Signed (signature on file) Luma Landa MD 12/29/24 1516 Specimen: [id number] Received: 12/28/24 Status: LUIZA Khanna Num: [id number] Spec Type: Surgical Subm Dr: Ephraim Spencer Tissues: A Endocervix - Curettings (ENDOVERV CURRT) B Cone/Leep (ECTOCERV CONE) C Fallopian Tube - Sterilization (BILT FALL TUBE) Procedures: , Gross/Micro L5, Gross/Micro L4, Gross/Micro L2 Patient: Michelle Zuluaga [id number] (Continued) Specimen: [id number] Received: 12/28/24-132 (Continued) Clinical Information Request for sterilization, abnormal uterine bleeding, pelvic pain Gross Description Part A is received in formalin labeled with the patients name, date of , and endocervical BX tissue is a Telfa pad with an adherent pale méndez mucoid material, admixed with feathery reagan-pink to red-brown tissue fragments, 2.5 x 1.5 x 0.3 cm in aggregate. The specimen is filtered and entirely submitted in a single cassette. (1, ns, BS25- 161 A) Part B is received in formalin labeled with the patients name, date of , and ectocervical tissue is a Telfa pad with 3 fragments of cervical conization specimen, 0.6 x 0.5 x 0.2 cm, 0.8 x 0.5 x 0.2 cm, and 2.3 x 1.3 x 0.5 cm. The largest specimen is crescent- shaped. The largest specimen is inked orange along the lesser curvature and black along the greater curvature with the 2 smaller fragments entirely inked black. The specimen is entirely submitted. Cassettes: B1?B2 Entirety of serially sectioned 2.3 cm fragment B3 Entirety of serially sectioned 0.8 cm fragment B4 Entirety of trisected 0.6 cm fragment (4, ns, LF30-824 B) Part C is received in formalin lab (more content not included)...NormalHollywood [facility] Center Physician GroupNORT[facility] 01-24-[address] [place], [place] [address] Electrocardiograph Report Signed Patient: MICHELLE ZULUAGA MR#: [id number] : 1985 Acct:[id number] Age/Sex: 39 / F ADM Date: 12/15/24 Loc: PST Attending Dr: Ephraim Spencer D.O. Ordering Physician: Ephraim Spencer D.O. 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 Measurements Intervals [place] Rate: 79 P: 58 GA: 170 QRS: 75 QRSD: 71 T: 71 QT: 345 QTc: 397 Interpretive Statements SINUS RHYTHM Compared to ECG 06/06/2023 11:29:53 No significant changes Electronically Signed On 12-15-2024 13:06:06 EST by DEANDRA HINOJOSA M.D. Dictated By: DEANDRA HINOJOSA M.D. Signed By: 12/16/24 0919 DD/ 1018 TD/TT: Adjunct Mathematics Instructor:TATEHRadiologviola, Radiologist, - 12/16/2024 [address] [place] [id number] Electrocardiograph Report Signed Patient: MICHELLE ZULUAGA MR#: [id number] : 1985 Acct:[id number] Age/Sex: 39 / F ADM Date: 12/15/24 Loc: PST Attending Dr: Ephraim Spencer D.O. Ordering Physician: Ephraim Spencer D.O. 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 Measurements Intervals [place] Rate: 79 P: 58 GA: 170 QRS: 75 QRSD: 71 T: 71 QT: 345 QTc: 397 Interpretive Statements SINUS RHYTHM Compared to ECG 06/06/2023 11:29:53 No significant changes Electronically Signed On 12-15-2024 13:06:06 EST by DEANDRA HINOJOSA M.D. Dictated By: DEANDRA HINOJOSA M.D. Signed By: 12/16/24 0919 DD/ 1018 TD/TT: Adjunct Mathematics Instructor: MIKHAIL [facility] 12-LEADOrdered By: Radiologist Radiology on 20-18-3800LOLQ [employer] Work Phone: ECG 12-LEADon 06-28-4354Fhpcepedv Study observation (narrative)[facility] HealthcareCT ABDOMEN AND PELVIS W CONTon 06-42-6169HG ABDOMEN AND PELVIS W CONTCT ABDOMEN AND PELVIS W CONT CT ABDOMEN AND PELVIS W CONT HISTORY: Pelvic pain, negative beta hCG, prominent vessels on ultrasound suggesting pelvic congestion syndrome COMPARISON: None TECHNIQUE: CT images of abdomen and pelvis obtained following administration of contrast. Automatedexposure control was utilized. All CT scans at this facility use dose modulation, iterative reconstruction, and/or weight based dosing when appropriate to reduce radiation dose to as low as reasonably achievable. FINDINGS: ABDOMINAL/PELVIC WALL: Small umbilical hernia measuring 1.2 cm in diameter. LOWER THORAX: The lung bases are clear. Small area of pleural nodularity in the posterior lower lung base which may represent pleural scarring. Recommend attention on follow-up examinations. The heart is normal in size. Bilateral breast implants. ESOPHAGUS/STOMACH: The esophagus is nondilated. No gastric wall defects. LIVER: Normal in size and configuration. No suspicious mass. Small hepatic cystic structures which are too small characterize, statistically benign. BILE DUCTS: No intrahepatic or extrahepatic bile duct dilation. GALLBLADDER: No calcified stones. Normal wall thickness. PANCREAS: No abnormal attenuation. No main pancreatic duct dilation. SPLEEN: No splenomegaly. ADRENAL GLANDS: No nodules. KIDNEYS/URETERS: No hydroureteronephrosis. The kidneys enhance symmetrically. No suspicious renal mass. BLADDER: Underdistended. REPRODUCTIVE ORGANS: Uterus is present. The right ovary is surgically absent. No adnexal masses. Multiple vascular collaterals in the pelvis and prominence of the left greater than right gonadal vein(2:54). BOWEL: No disproportionate dilation of the small or large bowel. The appendix is not enlarged. No periappendiceal fat stranding. PERITONEUM/RETROPERITONEUM: No fluid collection, ascites, or pneumoperitoneum. LYMPH NODES: No abdominal or pelvic lymphadenopathy by size criteria. VESSELS: No abdominal aortic aneurysm. BONES: No suspicious osseous lesions. L2 vertebral body sclerotic focus, indeterminate. IMPRESSION: 1. Multiple pelvic vascular collaterals with prominence of the left greater than right gonadal vein, likely reflecting pelvic congestion syndrome. 2. Indeterminate L2 vertebral body sclerotic focus. Consider further characterization with nonemergent dedicated lumbar spine radiographs. I, Hillary Hassan MD have personally reviewed the image(s) and agree with and/or edited the report Finalized by Hillary Hassan MD on 11/03/2024 11:49 AMNormalProBaylor Scott & White All Saints [facility] Fort WorthUS PELVIC WITH TRANSVAGINALon 28-49-9913UD PELVIC WITH TRANSVAGINALUS PELVIC WITH TRANSVAGINAL US PELVIC WITH TRANSVAGINAL: 10/15/2024 9:42 AM INDICATION: 39 years old Female. Pelvic pain. COMPARISON: None. TECHNIQUE: Transabdominal and transvaginal sonographic evaluation of the pelvis was performed. FINDINGS: Uterus appears anteverted and measures 8.4 x 5.8 x 3.6 cm. No uterine masses identified. Endometrium measures up to 3 mm. Advanced periuterine vessels are noted in addition to possible intrauterine peripherally located marked vascularity. The right ovary is surgically absent. The left ovary measures 2.9 x 2.7 x 2.1 cm with a 2.6 cm ovarian cyst. Flow is noted overlying the left ovary at the time scanning. No significant free fluid. IMPRESSION: Advanced periuterine and intrauterine vascular prominence raises concern for pelvic congestion syndrome. Correlate with history. Consideration to CT abdomen pelvis with IV contrast in order to interrogate the ovarian veins with subsequent interventional radiology consultation as indicated. Finalized by Maribel Loza MD on 10/16/2024 3:05 PMNormalGlenbeigh HospitalCytologyon 34-78-5800KmhgydijGdxpeqRozKebyhw Fremont HospitalComment on above:Result Comment: [facility] [address] [place] [address] Gynecologic Cytology Consultation Patient Name:MICHELLE ZULUAGA:1985 (Age: 39)Gender:FTaken:4Reported:10/19/2024Physician(s):Emelyn Tran, [facility]URE THERAPIST- [facility] ([phone])Copy To: Rec. #:[id number]: #[id number] Final Cytologic Interpretation ThinPrep Pap Test (Cervical): Satisfactory for evaluation. A transformation zone component is present. NEGATIVE FOR INTRAEPITHELIAL LESION OR MALIGNANCY. [facility]24 [place] [address], License number: [id number]. 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 The Pap test is primarily effective for the diagnosis and prevention of squamous cell carcinoma. Regular screening iscritical for prevention. ThinPrep liquid-based slides, which meet the Automated Process Operator criteria for automated screening, have been screened by the ThinPrep Imaging System (as of 06/30/07) along with an additional manual rescreening by a digital account supervisor and, if indicated, by a pathologist.HIGH RISK HPV W/GENOon 83-82-5753FPG 31+33+35+39+45+51+52+56+58+59+66+68 DNA VANCE+probe Ql (Cvx)HPV SPECIMEN TYPE ThinPrep HPV 16 Positive (qualifier value) HPV 18 Negative (qualifier value) OTHER HIGH RISK HPV Negative (qualifier value) HPV types 31,33,35,39,45,52,56,58,59,66 and 68 DNA were undetectable.NormalGlenbeigh HospitalComment on above: Performed By: #### [id number] #### [facility] ([id number]) [address], [place] [address] [facility] ([id number]) [address], [address] [place], [place] [address]RMBSXAMLI/GC BY PCRon 13-42-6682IRELTNXCT/GC BY PCRSPECIMEN SOURCE CERVIX CHLAMYDIA DNA(PCR) Negative (qualifier value) Chlamydia trachomatis not detected by nucleic acid amplification. This does not exclude the possibility of infection because results are dependent on adequate specimen collection. GONORRHOEAE DNA(PCR) Negative (qualifier value) Neisseria gonorrhoeae not detected by nucleic acid amplification. This does not exclude the possibility of infection because results are dependent on adequate specimen collection.Mad[facility] HealthComment on above:Performed By: #### CGS #### [facility] ([id number]) [address] [place], [place] [id number] PANEL PCRon [id number] PANEL PCRBACT. VAGINOSIS DNA Detected (qualifier value) Qualitative results are reported based on detection and quantitation of targeted organism markers which include: Lactobacillus spp. (L. crispatus and L. jensenii), Gardnerella vaginalis, Atopobium vaginae, Bacterial Vaginosis Associated Bacteria-2 (BVAB-2) and Megasphaera-1 DOROTA SPECIES DNA Detected (qualifier value) Dorota species result based on detection of one or more of the following species: C. albicans, C. tropicalis, C. parapsilosis or C. dubliniensis DOROTA KRUSEI DNA Not detected (qualifier value) No Dorota krusei detected DOROTA GLABRATA DNA Not detected (qualifier value) No Dorota glabrata detected TRICHOMONAS VAG DNA Not detected (qualifier value) No Trichomonas vaginalis detected NOTE BD MAX Vaginal Panel has not been evaluated for patients under 18 years old. Results for these patients should be reviewed and assessed in accordance with clinical presentation to determine patient diagnosis.NormalProMedica Blaine HospitalComment on above:Performed By: #### VPPCR #### [facility] ([id number]) [address] [place] [address], [address] [place], [place] [address]Fcekqdwd Cervical or vaginal smear or scraping studyOrdered By: Seda Genao on 89-16-1292ENMS HealthcareCULTURE URINEon 79-06-9049JQQHCIZ URINEIsolate 1 Escherichia coli >100,000 cfu/mL of ORGANISM 1 Escherichia coli ANTIBIOTIC M.I.C RX STATUS Ampicillin >=32 R F Ampicillin/Sulbactam 8 S F Piperacillin/Tazobactam <=4 S F Cefazolin <=4 S F Ceftazidime <=1 S F Ceftriaxone <=1 S F Ertapenem <=0.5 S F Imipenem <=0.25 S F Amikacin <=2 S F Gentamicin <=1 S F Tobramycin <=1 S F Ciprofloxacin <=0.25 S F Levofloxacin <=0.12 S F Nitrofurantoin <=16 S F Trimethoprim/Sulfamethoxazole <=20 S FNormalThe [facility] Cleveland Medical CenterComment on above:Performed By: #### URCX #### [facility] [address] [place] [address] Dr. Anny Kang SPUTUMon 15-44-0622UUAYODR SPUTUMCulture Observations: NORMAL RESPIRATORY JOSEPHINE.NormalThe [facility] CenterComment on above:Performed By: #### SPUTCX #### [facility] [address] [place] [address] Dr. Anny Kang URINEon 29-02-1865VGBDSEQ URINECulture Observations: LIGHT GROWTH OF MIXED GENITAL JOSEPHINE. NO POTENTIAL PATHOGENS SEEN.NormalOhiohealth Hardin Memorial HospitalComment on above:Performed By: #### URCX #### [facility] [address] [place] [address] Dr. Anny LandaRESPIRATORY PANEL PLUSon 36-38-9899SkozghmzpsMzu detectedNormal NOT DETECTEDThe [facility] CenterComment on above:Performed By: #### RSPLUS #### [facility] [address] [address] [address] Anny Johnson ParapertusisNot detectedNormalNOT DETECTEDThe [facility] CenterComment on above:Performed By: #### RSPLUS #### [facility] [address] [address] [address] Anny Johnson PertussisNot detectedNormalNOT DETECTEDThe [facility] Comment on above:Performed By: #### RSPLUS #### [facility] [address] [address] [address] Anny LandaChlamydia PneumoniaeNot detectedNormalNOT DETECTEDThe [facility] CenterComment on above:Performed By: #### RSPLUS #### [facility] [address] [address] [address] Anny LandaCoronavirus 229ENot detectedNormalNOT DETECTEDThe [facility] CenterComment on above:Performed By: #### RSPLUS #### [facility] [address] [address] [address] Anny LandaCoronavirus AQB3Zvm detectedNormalNOT DETECTEDThe [facility] CenterComment on above:Performed By: #### RSPLUS #### [facility] [address] [address] [address] Anny LandaCoronavirus QY70Fas detectedNormalNOT DETECTEDThe [facility] CenterComment on above:Performed By: #### RSPLUS #### [facility] [address] [address] [address] Anny LandaCoronavirus ZR96Ciy detectedNormalNOT DETECTEDThe [facility] CenterComment on above:Performed By: #### RSPLUS #### [facility] [address] [address] [address] Anny LandaInflfaustonbenji A H1Not detectedNormalNOT DETECTEDThe [facility] Comment on above:Performed By: #### RSPLUS #### [facility] [address] [address] [address] Anny Álvarez A H1 2009Not detectedNormalNOT DETECTEDThe [facility] CenterComment on above:Performed By: #### RSPLUS #### [facility] [address] [address] [address] Anny Álvarez A H3Not detectedNormalNOT DETECTEDThe [facility] Comment on above:Performed By: #### RSPLUS #### [facility] [address] [address] [address] Anny Álvarez BNot detectedNormalNOT DETECTEDThe [facility] Comment on above:Performed By: #### RSPLUS #### [facility] [address] [address] [address] Anny IsabelneumovirusNot detectedNormalNOT DETECTEDThe [facility] CenterComment on above:Performed By: #### RSPLUS #### [facility] [address] [address] [address] Anny Eid. PneumoniaeNot detectedNormalNOT DETECTEDThe [facility] CenterComment on above:Performed By: #### RSPLUS #### [facility] [address] [address] [address] Anny Valerio 1Not detectedNormalNOT DETECTEDThe [facility] CenterComment on above:Performed By: #### RSPLUS #### [facility] [address] [address] [address] Anny Valerio 2Not detectedNormalNOT DETECTEDThe [facility] Medical CenterComcorewell health ludington hospital on above:Performed By: #### RSPLUS #### [facility] [address] [address] [address] Anny Valerio 3Not detectedNormalNOT DETECTEDThe [facility] Medical CenterComcorewell health ludington hospital on above:Performed By: #### RSPLUS #### [facility] [address] [address] [address] Anny Valerio 4Not detectedNormalNOT DETECTEDThe [facility] Medical CenterComcorewell health ludington hospital on above:Performed By: #### RSPLUS #### [facility] [address] [address] [address] Anny Cespedes/EnterovirusDetectedAbnormalNOT DETECTEDThe [facility] on above:Performed By: #### RSPLUS #### [facility] [address] [place] [address] Dr. Anny Heath Header 1RESPIRATORY PANEL: VIRUSESMount St. [facility] Comment on above:Performed By: #### RSPLUS #### [facility] [address] [place] [address] Dr. Anny Heath Header 2RESPIRATORY PANEL: BACTERIANoWilson Street HospitalComment on above:Performed By: #### RSPLUS #### [facility] [address] [place] [address] Dr. Anny Phelan detectedNormalNOT DETECTEDThe [facility] on above:Performed By: #### RSPLUS #### [facility] [address] [place] [address] Dr. Anny Flores-CoV-2 (COVID-19) RNA VANCE+probe Ql (Unsp spec)Not detected NormalNOT DETECTEDThe [facility] CenterComment on above:Performed By: #### RSPLUS #### [facility] [address] [place] [address] Dr. Anny Correia AUTO DIFFon 35-29-3845YLWT #0.1 103/ulNormal0.0-0.1The [facility] on above:Performed By: #### CBC #### [facility] [address] [place] [address] Dr. Anny LandaBasophils/100 WBC (Bld)0.9 %Normal0.2-2.0The [facility] Comment on above:Performed By: #### CBC #### [facility] [address] [place] [address] Dr. Anny Hidalgo #0.2 103/ulNormal0.0-0.7The [facility] on above: Performed By: #### CBC #### [facility] [address] [place] [address] Dr. Anny Lernerosinophils/100 WBC (Bld)2.3 %Normal0.9-7.0The [facility] Comment on above:Performed By: #### CBC #### [facility] [address] [place] [address] Dr. Anny Lernerrythrocyte distribution width (RBC) [Ratio]13.1 %Sbuoni99.0-15.0 [facility] HospitalComment on above:Performed By: #### CBC #### [facility] [address] [place] [address] Dr. Anny LandaHematocrit (Bld) [Volume fraction]43.0 %Piojuk50.0-48.0The [facility] CenterComment on above:Performed By: #### CBC #### [facility] [address] [place] [address] Dr. Anny LandaHemoglobin (Bld) [Mass/Vol]14.7 g/eGNrwboc99.0-16.0The [facility] CenterComment on above:Performed By: #### CBC #### [facility] [address] [place] [address] Dr. Anny Duarte #0.01 10e3/ulNormal0.00-0.03The [facility] CenterComment on above:Performed By: #### CBC #### [facility] [address] [place] [address] Dr. Anny Duarte %0.2 %Normal0.0-0.5The [facility] CenterComment on above: Performed By: #### CBC #### [facility] [address] [place] [address] Dr. Anny IsabelH #3.0 103/ulNormal1.2-3.8The [facility] CenterComment on above:Performed By: #### CBC #### [facility] [address] [place] [address] Dr. Anny Isabelhocytes/100 WBC (Bld)46.8 %Mnrlzc62.5-60.0The [facility] CenterComment on above:Performed By: #### CBC #### [facility] [address] [place] [address] Dr. Anny DiezUAL DIFF REQNONormalThe [facility] CenterComment on above: Performed By: #### CBC #### [facility] [address] [place] [address] Dr. Anny Humphreys (RBC) [Entitic mass]30.6 dlJavxcg73.7-34.0The [facility] CenterComment on above:Performed By: #### CBC #### [facility] [address] [place] [address] Dr. Anny Humphreys (RBC) [Mass/Vol]34.2 g/jQElheaw26.9-35.2The [facility] HospitalComment on above:Performed By: #### CBC #### [facility] [address] [place] [address] Dr. Anny Ryan (RBC) [Entitic vol]89.4 sQIlyijh86.0-99.0The [facility] CenterComment on above:Performed By: #### CBC #### [facility] [address] [place] [address] Dr. Anny Langston #0.5 103/ulNormal0.3-0.8The [facility] CenterComment on above:Performed By: #### CBC #### [facility] [address] [place] [address] Dr. Anny Raineyocytes/100 WBC (Bld)8.3 %Normal1.7-12.0The [facility] Comment on above:Performed By: #### CBC #### [facility] [address] [place] [address] Dr. Anny Ramon #2.7 103/ulNormal1.4-6.5The [facility] CenterComment on above:Performed By: #### CBC #### [facility] [address] [place] [address] Dr. Anny Mohanutrophils/100 WBC (Bld)41.5 %Critically low43.0-75.0The [facility] CenterComment on above:Performed By: #### CBC #### [facility] [address] [place] [address] Dr. Yilan ChangPlatelet mean volume (Bld) [Entitic vol]9.6 fLNormal9.5-13.5The [facility] CenterComment on above:Performed By: #### CBC #### [facility] [address] [place] [address] Dr. Anny LandaPLT276 103/mvZqjfnf064-445Llo [facility] CenterComment on above: Performed By: #### CBC #### [facility] [address] [address] [address] Anny LandaRBC4.81 106/ulNormal4.20-5.40The [facility] CenterComment on above:Performed By: #### CBC #### [facility] [address] [place] [address] Dr. Anny LandaWBC6.4 103/ulNormal4.0-11.0The [facility] CenterComment on above: Performed By: #### CBC #### [facility] [address] [place] [address] Dr. Anny GoodID PROFILEon 11-96-3180JQUK-HDL RATIO NORMSEE Wilson Street HospitalComment on above:Result Comment: 3.3 - 4.4 LOW RISK 4.4 - 7.1 AVERAGE RISK 7.1 - 11.0 MODERATE RISK >11.0 HIGH RISKPerformed By: #### CMP, LIPID, TSH #### [facility] [address] [place] [address] Dr. Anny LandaCholesterol [Mass/Vol]159 mg/dLNormal<=200[facility] Comment on above:Performed By: #### CMP, LIPID, TSH #### [facility] [address] [place] [address] Dr. Anny Nathesterol in HDL [Mass/Vol]61 mg/dLCritically oipn31-86VtpOhiohealth Hardin Memorial HospitalComcorewell health ludington hospital on above:Performed By: #### CMP, LIPID, TSH #### [facility] [address] [place] [address] Dr. Anny Nathesterol in LDL [Mass/Vol]86.2 mg/dLNoWilson Street HospitalComment on above:Performed By: #### CMP, LIPID, TSH #### [facility] [address] [address] [address] Anny LandaCholesterol.total/Cholesterol in HDL [Mass ratio]2.6 {ratio} NormalThe [facility] CenterComment on above:Performed By: #### CMP, LIPID, TSH #### [facility] [address] [address] [address] Anny Lyons NORMAL> or = 60 mg/dl - LOW CARDIOVASCULAR RISK <40 mg/dl - HIGH CARDIOVASCULAR RISKNoWilson Street HospitalComment on above:Performed By: #### CMP, LIPID, TSH #### [facility] [address] [address] [address] Anny Wilkins CALC NORMALSEE BELOWMount St. Mary HospitalComment on above:Result Comment: <100 mg/dl OPTIMAL 100 - 129 mg/dl NEAR OR ABOVE OPTIMAL 130 - 159 mg/dl BORDERLINE HIGH 160 - 189 mg/dl HIGH >190 mg/dl VERY HIGH Performed By: #### CMP, LIPID, TSH #### [facility] [address] [address] [address] Anny LandaTriglyceride [Mass/Vol]59 mg/dLNormal<=150The [facility] Comment on above:Performed By: #### CMP, LIPID, TSH #### [facility] [address] [address] [address] Anny LandaVLDL CALC11.8 mg/dLNoWilson Street HospitalComment on above: Performed By: #### CMP, LIPID, TSH #### [facility] [address] [place] [address] Dr. Anny LandaPROF 14(COMP METB)on 29-48-1487Lvqfble [Mass/Vol]3.6 g/dLNormal 3.4-5.0[facility] HospitalComment on above:Performed By: #### CMP, LIPID, TSH #### [facility] [address] [place] [address] Dr. Anny LandaAlbumin/Globulin [Mass ratio]1.0 {ratio}NormalOhiohealth Hardin Memorial HospitalComment on above:Performed By: #### CMP, LIPID, TSH #### [facility] [address] [place] [address] Dr. Anny Bermudez [Catalytic activity/Vol]74 U/MKadhdp76-128Knb [facility] CenterComment on above:Performed By: #### CMP, LIPID, TSH #### [facility] [address] [place] [address] Dr. Anny Chávez [Catalytic activity/Vol]23 U/HFglgyc30-04Hxh [facility] CenterComment on above:Performed By: #### CMP, LIPID, TSH #### [facility] [address] [place] [address] Dr. Anny Silva gap [Moles/Vol]10.3 mmol/LNormalOhiohealth Hardin Memorial Hospital Comment on above:Performed By: #### CMP, LIPID, TSH #### [facility] [address] [place] [address] Dr. Anny LandaAST [Catalytic activity/Vol]12 U/LCritically jnn41-82Exb [facility] CenterComment on above:Performed By: #### CMP, LIPID, TSH #### [facility] [address] [place] [address] Dr. Anny LandaBilirubin [Mass/Vol]0.4 mg/dLNormal0.2-1.0The [facility] Comment on above:Performed By: #### CMP, LIPID, TSH #### [facility] [address] [place] [address] Dr. Anny LandaCalcium [Mass/Vol]8.7 mg/dLNormal8.5-10.1[facility] Comment on above:Performed By: #### CMP, LIPID, TSH #### [facility] [address] [place] [address] Dr. Anny LandaChloride [Moles/Vol]105 mmol/DSkdpst57-118Cgz [facility] Comment on above:Performed By: #### CMP, LIPID, TSH #### [facility] [address] [place] [address] Dr. Anny LandaCO2 [Moles/Vol]31.2 mmol/MLonmjw98.0-32.0The [facility] Comment on above:Performed By: #### CMP, LIPID, TSH #### [facility] [address] [address] [address] Anny LandaCreatinine [Mass/Vol]0.96 mg/dLNormal0.55-1.02Ohiohealth Hardin Memorial HospitalComment on above:Performed By: #### CMP, LIPID, TSH #### [facility] [address] [address] [address] Anny LernerGFR-AF PITCAIRN ISLANDER>60Normal>=60The [facility] CenterComment on above:Performed By: #### CMP, LIPID, TSH #### [facility] [address] [place] [address] Dr. Anny Oneil-NON AF PITCAIRN ISLANDER>60Normal>=60The [facility] CenterComment on above:Performed By: #### CMP, LIPID, TSH #### [facility] [address] [place] [address] Dr. Anny LandaGlobulin (S) [Mass/Vol]3.6 g/dLNormalThe [facility] CenterComment on above:Performed By: #### CMP, LIPID, TSH #### [facility] [address] [place] [address] Dr. Anny LandaGlucose [Mass/Vol]100 mg/aNFboqbn66-729WddOhiohealth Hardin Memorial Hospital Comment on above:Performed By: #### CMP, LIPID, TSH #### [facility] [address] [place] [address] Dr. Anny LandaPotassium [Moles/Vol]3.5 mmol/LNormal3.5-5.1The [facility] Comment on above:Performed By: #### CMP, LIPID, TSH #### [facility] [address] [place] [address] Dr. Anny LandaProtein [Mass/Vol]7.2 g/dLNormal6.4-8.2The [facility] Comment on above:Performed By: #### CMP, LIPID, TSH #### [facility] [address] [address] [address] Anny Alexanderdium [Moles/Vol]143 mmol/EIpldcc132-674Cvi [facility] Comment on above:Performed By: #### CMP, LIPID, TSH #### [facility] [address] [place] [address] Dr. Anny Templeton nitrogen [Mass/Vol]10.0 mg/dLNormal7.0-18.0The [facility] CenterComment on above:Performed By: #### CMP, LIPID, TSH #### [facility] [address] [place] [address] Dr. Anny Templeton nitrogen/Creatinine [Mass ratio]10.4 mg/mgNormalThe [facility] CenterComment on above:Performed By: #### CMP, LIPID, TSH #### [facility] [address] [place] [address] Dr. Anny Alexandre 70-78-5436TUN1.562 uIU/mLNormal0.358-3.740Ohiohealth Hardin Memorial HospitalComment on above:Performed By: #### CMP, LIPID, TSH #### [facility] [address] [place] [address] Dr. Anny Lam Quick Testingon 77-57-2580VtzkitCizqzlsyStvex Coast [employer] Other Quick Fluon 01-10-4126FPGTT Ab CF (S) [Titer]Negative [facility] [employer] Other FLUBV Ab CF (S) [Titer]NegativeVirginia Mason Hospital [facility] Other Collagen/ADPon 99-80-8307Pxgnpumi function (closure time) collagen+ADP induced (Bld) [Time]107 second(s)Caeikl70-673Eqdquu [facility] HospitalComment on above:Order Comment: Order added on by rule.Performed By: #### [id number], [id number] #### Edy [facility] [address] [place] [address]Lssngdind Orderon 62-63-6045Lcrefzpli Order [id number]#1.00CD:127NormalKettering Health MiamisburgPhysician [id number]#1.00CD:127Normal [facility] Health MiamisburgPlt Function Assayon 20-90-7555Tlkjvzmy function (closure time) collagen+EPINEPHrine induced (Bld) [Time]>386Kfui88-862HyemqyKettering Health MiamisburgComment on above:Result Comment: Normal ASA vWD Glanzmann?s Thrombasthenia ------- ------ ------- COL/EPI Normal Abnormal Abnormal Abnormal Col/ADP Normal Normal Abnormal AbnormalPerformed By: #### [id number], [id number] #### Edy [facility] [address] [place] [address] Vital Signs Date TimeVital SignValuePerforming KmfdnuchkHogjijow82-51-6641 10:37-0400Body fecwie557.94 cmYolanda Yancey APRN Work Phone: [facility]07-14-2025 10:37-0400 Body mass index (BMI) [Ratio]21.3 kg/k1JzeanmtkYolanda Yancey APRN Work Phone: [facility]07-14-2025 10:37-0400 Body plmvvhhzfox15.4 [degF]Yolanda Yancey APRN Work Phone: [facility]07-14-2025 10:37-0400 Body pjahzv70.25 kgYolanda Yancey APRN Work Phone: [facility]07-14-2025 10:37-0400 Diastolic blood zxjymcro58 mm[Hg]Yolanda Yancey APRN Work Phone: [facility]07-14-2025 10:37-0400 Heart offg958 /minYolanda Deborahabhaylynn ADVENTURE THERAPIST Work Phone: [facility]07-14-2025 10:37-0400 SaO2% (BldA) [Mass fraction]98 %Yolanda Escobarlynn ADVENTURE THERAPIST Work Phone: [facility]07-14-2025 10:37-0400 Systolic blood awefzydo144 mm[Hg]Yolanda Bustamanterylie ADVENTURE THERAPIST Work Phone: [facility]06-04-2025 10:04-0400 Body wpwrqe521.94 cmChasedemetri Spicerle DNP Work Phone: [facility]06-04-2025 10:04-0400 Body mass index (BMI) [Ratio]21.3 kg/z7Redjrjzw Kaple DNP Work Phone: [facility]06-04-2025 10:04-0400 Body pgipimaekxl96.3 [degF]Yolandabrynn Salazar DNP Work Phone: [facility]06-04-2025 10:04-0400 Body srkypu41.25 kgChasedemetri Salazar DNP Work Phone: [facility]06-04-2025 10:04-0400 Diastolic blood jyndqiew05 mm[Hg]Yolanda Salazar DNP Work Phone: [facility]06-04-2025 10:04-0400 Heart xggy918 /minChasedemetri Spicerle DNP Work Phone: [facility]06-04-2025 10:04-0400 SaO2% (BldA) [Mass fraction]98 %Yolanda Martin DNP Work Phone: [facility]06-04-2025 10:04-0400 Systolic blood dbuunvsh857 mm[Hg]Yolanda Salazar DNP Work Phone: [facility]03-20-2025 13:39-0400 Body nsonededrjl77.9 [degF]Claire ALAMO Work Phone: [phone] [place], [place] [address]Ejshsmsgqf93-95-0223 13:39-0400Body sanfhk96.97 kgClaire ALAMO Work Phone: [phone] [place], [place] [address]Yafwollwsp77-36-2555 13:39-0400Diastolic blood rrxahsag96 mm[Hg]Claire ALAMO Work Phone: 1(546)316-[facility] HospitalUrrrgiinox78-96-3899 13:39-0400Systolic blood ftvzoqoc41 mm[Hg]Claire ALAMO Work Phone: [phone] [place], [place] [address]Zbajbxvani88-99-0479 08:59-0500Body zuxnuk15.75 kgCorey Tj DO Work Phone: [phone] [place], [place] [address]Ljixewghib77-90-9882 08:59-0500Diastolic blood jfdflocw39 mm[Hg]Ephraim Tj DO Work Phone: [phone])845-[facility] HospitalBlfvrliybl94-12-6534 08:59-0500Systolic blood ecxhmifn454 mm[Hg]Ephraim Tj DO Work Phone: [phone])[facility] [place], [place] [address]Ybynwyotde22-88-5177 13:38-0500Body vgwquc00.24 kgCorey Tj DO Work Phone: 1(650)218-[address] [place], [place] [address]Huggklkvwn81-85-8184 13:38-0500Diastolic blood jnanmmzk17 mm[Hg]Ephraim Tj DO Work Phone: [phone])943-[facility] HospitalYvhzzbwnbr30-56-1258 13:38-0500Systolic blood mm[Hg]Ephraim Tj DO Work Phone: 1([phone])992-[address] [place], [place] [address]Cgbucvdqwl09-21-9028 14:35-0500Body ooxsmw857.5 [facility]11-14-2024 14:35-0500Body mass index (BMI) [Ratio]26.16 kg/m2[facility]11-14-2024 14:35-0500Body brmgma24.86 kgPOhioHealth [facility]11-14-2024 14:35-0500Diastolic blood allqegyy95 mm[Hg][facility]11-14-2024 14:35-0500 Systolic blood qcydmoij854 mm[Hg][facility]07-11-2024 07:03-0400Body vbegej838.94 cmL[facility]07-11-2024 07:03-0400Body mass index (BMI) [Ratio]26.1 kg/k9SrvovezxcLakehealth [facility]wood Medical Center07-11-2024 07:03-0400Body jvbfit20.65 kgL[facility]health [facility] 04-23-2024 07:03-0400Diastolic blood axrdjgki89 mm[Hg][facility]07-11-2024 07:03-0400Heart rate90 /[facility] 04-23-2024 07:03-0400Respiratory rate18 /[facility] 04-23-2024 07:03-0502LdC8% (BldA) [Mass fraction]98 %[facility]07-11-2024 07:03-0400Systolic blood ypbfesbj573 mm[Hg][facility]09-26-2023 09:45-0400Body qkhyec698.94 cmYolanda Salazar Other [employer] Other 09-26-2023 09:45-0400Body mass index (BMI) [Ratio]24.6 kg/b0SmrhhwatYolanda Salazar Other [employer] Other 09-26-2023 09:45-0400Body aidfkb73.06 kgJesofiecharles Nayanle Other [employer] Other 09-26-2023 09:45-0400Diastolic blood clvwhoci34 mm[Hg] Yolanda Salazar Other [employer] Other 09-26-2023 09:45-0400Respiratory rate18 /minYolanda Kaple Other [employer] Other 09-26-2023 09:45-5656OzV0% (BldA) [Mass fraction]98 % Yolanda Salazar Other [employer] Other 09-26-2023 09:45-0400Systolic blood dwijivez698 mm[Hg] Yolanda Salazar Other [employer] Other 08-29-2023 09:30-0400Body liktfz269.94 cmYolanda Salazar Other [employer] Other 08-29-2023 09:30-0400Body mass index (BMI) [Ratio] 23.56 kg/l9WcsbvequYolanda Salazar Other [employer] Other 08-29-2023 09:30-0400Body xoucoh05.56 kgYolanda Salazar Other [employer] Other 08-29-2023 09:30-0400Diastolic blood esnslemg26 mm[Hg] Yolanda Salazar Other [employer] Other 08-29-2023 09:30-0400Respiratory rate18 /minYolanda Salazar Other [employer] Other 08-29-2023 09:30-1420QmX8% (BldA) [Mass fraction]99 % Yoladna Salazar Other [employer] Other 08-29-2023 09:30-0400Systolic blood favryebs556 mm[Hg] Yolanda Salazar Other [employer] Other 12-26-2022 14:00-0500Body rmampj293.94 cmSjerry Arteagaault Other [employer] Other 12-26-2022 14:00-0500Body mass index (BMI) [Ratio] 22.67 kg/l0Omushrpdd Kelsie Other [employer] Other 12-26-2022 14:00-0500Body hlgiksfispx38.4 [degF] Bell Kelsie Other [employer] Other 12-26-2022 14:00-0500Body ryyvib16.43 kgStshahram Kelsie Other [employer] Other 12-26-2022 14:00-0500Diastolic blood vwuzcvhx67 mm[Hg] Bell Kelsie Other [employer] Other 12-26-2022 14:00-0500Respiratory rate18 /minSjerry Kelsie Other [employer] Other 12-26-2022 14:00-0370TlF4% (BldA) [Mass fraction]98 % Bell Kelsie Other [employer] Other 12-26-2022 14:00-0500Systolic blood qzzjoaai365 mm[Hg] Bell Kelsie Other [employer] Other 09-08-2022 11:00-0400Body aiqurg769.94 cmJedemetri Salazar Other [employer] Other 09-08-2022 11:00-0400Body mass index (BMI) [Ratio]24.2 kg/f1EjdgxzmwYolanda Salazar Other [employer] Other 09-08-2022 11:00-0400Body turezvqhdzf70.2 [degF] Yolanda Salazar Other [employer] Other 09-08-2022 11:00-0400Body dksudr38.11 kgChasedemetri Salazar Other [employer] Other 09-08-2022 11:00-0400Diastolic blood uvcrsfsd68 mm[Hg] Yolanda Salazar Other [employer] Other 09-08-2022 11:00-0400Respiratory rate18 /minYolanda Salazar Other [employer] Other 09-08-2022 11:00-1171UuB7% (BldA) [Mass fraction]99 % Yolanda Salazar Other [employer] Other 09-08-2022 11:00-0400Systolic blood grfvsniy793 mm[Hg] Yolanda Salazar Other [employer] Other 07-28-2022 11:00-0400Body .94 cmYolanda Salazar Other [employer] Other 07-28-2022 11:00-0400Body mass index (BMI) [Ratio] 24.18 kg/k9NbblmgeqYolanda Salazar Other [employer] Other 07-28-2022 11:00-0400Body ffkzzivdbfw47.6 [degF] Yolanda Martin Other [employer] Other 07-28-2022 11:00-0400Body hezbdm59.06 kgYolanda Martin Other [employer] Other 07-28-2022 11:00-0400Diastolic blood fnikfqnv131 mm[Hg]Yolanda Martin Other [employer] Other 07-28-2022 11:00-0400Respiratory rate18 /minYolanda Martin Other [employer] Other 07-28-2022 11:00-3814GeA9% (BldA) [Mass fraction]99 % Yolanda Salazar Other [employer] Other 07-28-2022 11:00-0400Systolic blood qeynetdi405 mm[Hg] Yolanda Martin Other [employer] Other 03-10-2022 11:45-0500Body lcnqja940.94 Jani Iglesias Other [employer] Other 03-10-2022 11:45-0500Body mass index (BMI) [Ratio] 23.62 kg/z3MbreafiviBell Iglesias Other [employer] Other 03-10-2022 11:45-0500Body lckvnivzmxh64 [degF] Bell Iglesias Other [employer] Other 03-10-2022 11:45-0500Body eifuys82.7 kgStshahram Iglesias Other [employer] Other 03-10-2022 11:45-0500Respiratory rate18 /minSjerry Iglesias Other [employer] Other 03-10-2022 11:45-8472OtW4% (BldA) [Mass fraction]98 % Bell Iglesias Other [employer] Other Encounters Encounter DateEncounter TypeCare ProviderFacilityStart: 04-26-2025 End: 56-86-4948tlqezovxmjRenatanvEzequiel Yancey APRN Work Phone: [facility] Work Phone: Start: 04-26-2025 End: 76-81-3137Lybmqjb encounter procedureYolanda Yancey APRN SAND MILL OPERATOR-[facility] Work Phone: Start: 03-29-2025 End: 32-47-6738Brwrrb outpatient visit 15 minutesCorey Tj DO Work Phone: noms BCP OBComment on above:Pelvic pain in female Start: 03-29-2025 End: 97-92-1942zbagdbiwocORFDM FAZIONot AvailableStart: 03-29-2025 End: 86-84-2740Jqcsto flowsheetCorey Tj DO Work Phone: [facility] BCP OBStart: 03-29-2025 End: 98-53-6578Nqltxi flowsheetCorey Tj DO Work Phone: [facility] BCP OBStart: 03-29-2025 End: 78-49-7522Zwwpanzy Result EncounterCorey Tj DO Work Phone: noms External Department UnsolicitedStart: 03-17-2025 End: 38-96-7347qdpratgiceMbgfutdh Kaple DNP Work Phone: [facility] Work Phone: Start: 03-17-2025 End: 16-46-2253Bstlwnm encounter procedureJedemetri Spicerbassem [facility] Work Phone: [facility] Work Phone: Start: 12-31-2024 End: 75-52-7005Pqlfth follow up visit related to original Karin ALAMO Work Phone: n[facility] BCP OBComment on above:Postoperative follow-up; URI, acuteStart: 12-31-2024 End: 23-15-6961jeczgcllgyBSB RAMEYNot AvailableStart: 12-25-2024 End: 68-65-5698ysgwpwtptsNwhrbvdt Martin [facility] Work Phone: [facility] Work Phone: Start: 12-25-2024 End: 68-73-6035Beskcvmk ReferredJedemetri Spicerbassem [facility] Work Phone: [facility] Path Spec [facility] HospStart: 12-15-2024 End: 38-94-3671Tncsyvfrx Result EncounterCorey Tj DO Work Phone: noms External Department UnsolicitedStart: 12-15-2024 End: 83-46-8645Dxlpmkpmv Result EncounterCorey Tj DO Work Phone: noms External Department UnsolicitedStart: 12-01-2024 End: 89-54-3116Twnaof flowsheetCorey Tj DO Work Phone: [facility] BCP OBStart: 12-01-2024 End: 91-52-0571Kpugyf flowsheetCorey Tj DO Work Phone: [facility] BCP OBStart: 12-01-2024 End: 13-08-5579vgbmwelqluNSMLT FAZIONot AvailableStart: 12-01-2024 End: 99-08-5911Flqttb outpatient visit 15 minutesCorey Tj DO Work Phone: [facility] OBComment on above:Pre-op examination; Request for sterilization; Menorrhagia with regular cycle; Abnormal uterine bleeding; Pelvic pain in female; Cervical high risk HPV (human papillomavirus) test positiveStart: 12-01-2024 End: 38-85-2621Vyiuwjpvaqnqt examination doneCorey [employer] Work Phone: noms HealthcareStart: 11-09-2024 End: 28-68-4353Hkcbdd flowsheetCoreReturbo DO Work Phone: noms [facility] OBStart: 11-09-2024 End: 56-03-5384Ezubrt flowsheetCorey LP33.TV DO Work Phone: noms [facility] OBStart: 11-09-2024 End: 59-91-6155Kdffes outpatient visit 15 minutesCorey [employer] Work Phone: noms [facility] OBComment on above:Pelvic pain in female; Irregular periods/menstrual cyclesStart: 11-09-2024 End: 62-23-7201sqlbhnykbmDIOGR FAZIONot AvailableStart: 11-04-2024 End: 44-67-5280OvzxseNuah M Krotzer ADVENTURE THERAPIST-SAND MILL OPERATOR Work Phone: [facility] - CyldeComment on above:HSV (herpes simplex virus) anogenital infectionStart: 11-03-2024 End: 78-84-1732qontcguhzwAIQZFisher-Titus Medical Centertart: 10-20-2024 End: 91-66-8236Pbxbht Maggie Tran ADVENTURE THERAPIST-SAND MILL OPERATOR Work Phone: [facility] Physicians Obstetrics/GynecologyComment on above:Pelvic pain (Primary Dx); Abnormal pelvic ultrasoundStart: 10-15-2024 End: 02-98-1246grgevsvmxvTWHNFisher-Titus Medical Centertart: 09-30-2024 End: 09-33-6503kbmeabnesyAYOPKKIWSpring Valley Hospital PPGStart: 70-08-2463Ddqasgqcw for gynecological examination (general) (routine) without abnormal findingsWest [facility] Ambulatory PPGStart: 09-30-2024 End: 75-82-2122odmchuuwrrKWVOPRSTMary Rutan Hospitaltart: 98-20-6822Zmhbfiljm for gynecological examination (general) (routine) without abnormal findingsChillicothe Hospitaltart: 09-15-2024 End: 92-87-5718Bopjky Maggie Tran APRN-[facility] Work Phone: [facility] Physicians Obstetrics/GynecologyComment on above:Surveillance of contraceptive pill (Primary Dx)Start: 08-29-2024 End: 53-61-7407Rrclaeown encounterGina Bruner APRN-[facility] Work Phone: [facility] HospitalRPStart: 08-27-2024 End: 11-96-4499mqgsrndodpQTLPF M SHOLEYSelect Medical Specialty Hospital - Akrontart: 08-27-2024 End: 95-17-2575Hnsxjx outpatient visit 15 minutesPfws Ob MidwifeProMediwi Physicians Obstetrics/GynecologyComment on above:Vaginal discharge (Primary Dx); Acute vaginitisStart: 08-27-2024 End: 47-93-4289satbtrpxyrAHYTZJQTSt. [facility] Hospital Ambulatory PPGStart: 57-71-7944Yktjsvnl examinationAdena Fayette Medical Centertart: 04-23-2024 End: 71-18-8569cmtmolbusrLbgdjcejgMemorial Hospital Work Phone: Start: 04-23-2024 End: 11-32-6326Ezpvxuwjc for general adult medical examination without abnormal findingsAdena Fayette Medical Centertart: 04-23-2024 End: 70-86-6986Sljlkpk encounter procedureCritical Access Hospital Phys[facility] Peng Work Phone: Start: 29-83-6080Gyy-patient / Non-visitCritical Access Hospital Physician Group-[facility] Family Medicine Peng Work Phone: Start: 07-09-2023 End: 95-51-7168jgcylsmsmwQbqpcias Kaple Other [employer] Other Start: 83-55-0607Tdjqkv outpatient visit 25 minutes Yolanda MartinFPG Family Medicine [place]kyStart: 06-11-2023 End: 11-81-9200xpnappntgjBjarxjzv Kaple Other [employer] Other Start: 77-23-3822Utpmhw outpatient visit 25 minutes Yolanda MartinFPG Family Medicine Sandlake cityyStart: 73-17-0354Zckufpxbu by computer linkJennifer KapleFPG Family Medicine [place]uskyStart: 57-12-5005Vejkpjnou encounterJennifer KapleFPG Family Medicine [place]kyStart: 12-27-2022 End: 51-49-5538ltvaogvepjHTUXCSBE [employer]orth [employer] Other Start: 12-18-2022 End: 01-85-3551wdoxikvkdzBqxdovxe Kaple Other [employer] Other Start: 13-06-7250Ktljhmrjf encounterJennifer KapleFPG Family Medicine [place]kyStart: 12-12-2022 End: 90-26-5582zehcxhicedCttgclyz Kaple Other [employer] Other Start: 26-60-5257Xhufpuuns encounterJennifer KapleFPG Primary CareStart: 12-10-2022 End: 07-83-6374tvakilyrlbZNMIGQLI KAPLEFacility:X1Nhmnr: 10-08-2022 End: 76-31-8664ddxazqxuymYsdkhnoxo Breault Other [employer] Other Start: 98-18-4488Igrazd outpatient visit 15 minutes [facility] ClydeStart: 09-12-2022 End: 83-17-7241lhaggefqwgNwrbcabq Kaple Other [employer] Other Start: 84-64-4357Nlulmpdjy encounterJennifer KapleFPG Family Medicine [place]kyStart: 06-21-2022 End: 01-66-4352igisujgousIbenxhaa Kaple Other [employer] Other Start: 77-48-5902Exazux outpatient visit 25 minutes Yolanda SalazarFPG Family Medicine [place]kyStart: 32-98-9085Zwtbkmovh encounter Yolanda SalazarFPG Primary CareStart: 05-14-2022 End: 16-48-4491xicweiurfjURQCCPDP [employer] Other Start: 05-10-2022 End: 12-53-1428rgzgtdegjrNbnqmwta Kaple Other [employer] Other Start: 82-75-7130Ltvnlt outpatient visit 25 minutes Yolanda SalazarFPG Family Medicine [place]kyStart: 04-26-2022 End: 66-14-8032kiimemappcFhbyszwf Kaple Other [employer] Other Start: 29-23-1950Byazhbqjs encounterJennifer KapleFPG Family Medicine [place]kyStart: 02-26-2022 End: 49-31-8517vtgsbwzxfgMrkiyqtb Kaple Other [employer] Other Start: 61-06-8712Ldalszfbi encounterJennifer KapleFPG Family Medicine [place]kyStart: 12-21-2021 End: 47-84-2963omgesdpugrFylrpiscr Breault Other [employer] Other Start: 48-82-1013Ihctej outpatient visit 15 minutes [facility] Procedures DateProcedureProcedure DetailPerforming ClinicianStart: 72-11-4426UFDLRAUES VAGINITIS (HTRX)Ephraim Tj DO Work Phone: Start: 19-58-4372Vqdkd dip stick/tablet rgnt non-auto w/o micrscpCorey Tj DO Work Phone: Start: 74-30-5700OGO 12-LEADCorey Tj DO Work Phone: Start: 90-99-7488Tydnc depression screening assessment Emelyn Tran ADVENTURE THERAPIST-SAND MILL OPERATOR Work Phone: Start: 34-84-9510Gfpqcuzxklh observation [Identifier] in Cervix by Cyto stainLisa Tran ADVENTURE THERAPIST-SAND MILL OPERATOR Work Phone: Start: 15-94-2791Vrmyp depression screening assessment Pfws MidwifeStart: 92-97-8102Ilrztaavhik observation [Identifier] in Cervix by Cyto stainPfws MidwifeStart: 38-29-2568Qssd cerv/vag auto thin layer prep mnl screenVamshi Tran MD Work Phone: Plan of Treatment DateCare ActivityDetailAuthorStart: 90-92-9306Mojfjdiuo for malignant neoplasm of cervixNOMS HealthcareStart: 45-22-1789Vbhjrlhsg for malignant neoplasm of cervixNOMS HealthcareStart: 93-40-4742GIaY,Tdap and Td Vaccines (3 - Td or Tdap) DTaP,Tdap and Td Vaccines (3 - Td or Tdap)[facility]Start: 53-41-8144Kyjglhbcd for malignant neoplasm of cervixPap SmearToledo Hospital SystemStart: 94-70-6677Oikqwhivr for malignant neoplasm of cervixPap Smear ProMMonticello Hospital SystemStart: 72-83-0307Lawco BMI Follow Up PlanAdult BMI Follow Up PlanProMercy Health Perrysburg [facility] SystemStart: 86-45-8689Zqagx BMI ScreeningAdult BMI ScreeningProMercy Health Perrysburg Hospital SystemStart: 77-33-4197Ioabrfzmnx ScreeningDepression ScreeningProUniversity Hospitals Ge[facility] Medical Centerca [facility] SystemStart: 21-61-0645Onvlqyz ScreeningTobacco ScreeningProUniversity Hospitals Ge[facility] Medical Centerca [facility] SystemStart: 13-60-9520Tqomf BMI ScreeningAdult BMI ScreeningProUniversity Hospitals Geaug[facility] Medical Centerca Health SystemStart: 73-09-1441Sugeqwu ScreeningTobacco ScreeningProUniversity Hospitals Ge[facility] Medical Centerca [facility] SystemStart: 03-29-2025 End: 90-97-9673Dainqow encounter pulzvjlkw26/16/2025 3:10 PM EDT Office Visit [facility] [address] [place] [phone] Ephraim Spencer, DO [address] [place], [place] [id number] [facility]rivedRANCHO SPRINGS [facility] OBComment on above:ArrivedStart: 03-29-2025 End: 62-64-3391RSPYNEIT(R) ADVANCED VAGINITIS PLUS, TMASURESWAB(R) ADVANCED VAGINITIS PLUS, TMA Pathology and Cytology Routine Pelvic pain in female Expect ed: 03/29/2025 (Approximate), Expires: 03/29/2026[facility] Work Phone: comment on above:Expected: 03/29/2025 (Approximate), Expires: 03/29/2026Start: 03-29-2025 End: 09-31-4003AB PelvisUS Pelvis w/ TV Imaging Routine Pelvic pain in female Expected: 03/29/2025 (Approximate), Expires: 03/29/2026[facility] HealthcareComment on above:Expected: 03/29/2025 (Approximate), Expires: 03/29/2026Start: 12-01-2024 End: 20-89-5609Gzbomxx encounter vwrakoare86/18/2025 8:50 AM EST Consult [facility] OB [address] [place] [phone] Ephraim Spencer, DO [address] [place] [address] [facility] OBStart: 11-24-2024 End: 68-56-8439Navhvxc encounter utbgvdtyt46/11/2025 11:00 AM EST Procedure visit [facility] [address] [facility] [place] [phone] Luz Merritt DO [address] [place] [address] [facility]/GynecologyStart: 11-09-2024 End: 25-76-4461Ygbwvty encounter /27/2025 1:30 PM EST Office Visit [facility] [address] [address] [place] [address] Ephraim Spencer DO [address] [facility] [address] [place], [place] [phone] ArrivedNOMOUNT ZION [facility] OBComment on above:ArrivedStart: 10-20-2024 End: 84-23-5619MY Abdomen and Pelvis W contrast IVCT abdomen and pelvis with contrast Imaging Routine Pelvic pain Abnormal pelvic ultrasound Expected: 10/20/2024, Expires: 10/20/2025[facility] Work Phone: Comment on above:Expected: 10/20/2024, Expires: 10/20/2025Start: 09-30-2024 End: 27-24-5823Pehdbpb encounter ffmdkiuzq36/18/2024 3:15 PM EST Office Visit [facility] [address] [place] [address] HohLbzvws Women's Services - CyldeStart: 78-38-3759Hapznqxbdm ScreeningDepression ScreeningProUniversity Hospitals Ge[facility] Medical Centerca Health SystemStart: 08-27-2024 End: 47-66-7366Rjeoaqzep/GC by PCR Sachi SwabChlamydia/GC by PCR Sachi Swab Microbiology Routine Vaginal discharge Acute vaginitis Expected: 08/27/2024 (Approximate), Expires: 08/27/2025[facility] Work Phone: Comment on above:Expected: 08/27/2024 (Approximate), Expires: 08/27/2025Start: 08-27-2024 End: 24-70-4950Twiyzxasc Panel PCRVaginitis Panel PCR Microbiology Routine Vaginal discharge Acute vaginitis Expected: 08/27/2024 (Approximate), Expires: 08/27/2025[facility] HospitalComment on above:Expected: 08/27/2024 (Approximate), Expires: 08/27/2025Start: 03-81-0323GTUER-19 Vaccine ( season)COVID-19 Vaccine ()[facility] Hospitaltart: 72-98-6689Auufyclaz for malignant neoplasm of cervixScp [facility] Start: 32-64-3014Qxlyl BMI Follow Up PlanAdult BMI Follow Up PlanTwin City HospitalCHLAMYDIA TRACHOMATIS (GENITO/STI)CHLAMYDIA TRACHOMATIS (GENITO/STI) Lab Routine Pelvic pain in female Ordered: 03/29/2025[facility] HospitalComment on above:Ordered: 03/29/2025Neisseria gonorrhoeae DNA [Presence] in Unspecified specimen by VANCE with probe detectionNeisseria gonorrhea DNA probe, direct Lab Routine Pelvic pain in female Ordered: 03/29/2025[facility] HospitalComment on above:Ordered: 03/29/2025[facility] Immunizations Immunization DateImmunizationNotesCare RuzcsfgrNfhfkmln51-93-5330wbyiltsjf, seasonal, injectableJennifer Kaple Other [facility]09-01-2021COVID-19 Vaccine Pfizer - Documentation Purposes OnlyJennifer Kaple Other [facility]08-11-2021COVID-19 Vaccine Pfizer - Documentation Purposes OnlyJennifer Kaple Other [facility]10-31-2020influenza, seasonal, injectableStephanie Kelsie Other [facility]11-29-2018influenza, seasonal, injectableStephanie Kelsie Other [facility]05-02-2018tetanus toxoid, reduced diphtheria toxoid, and acellular pertussis vaccine, adsorbedChildren's Hospital of The King's Daughters SystemNEGATED: Highlighted row has not occurred! 86-05-4183rtnrhjztr, seasonal, injectablePatient ObjectionJenncharles Salazar Other [facility] CenterNEGATED: Highlighted row has not occurred!25-10-5506ewiyoko, mumps and rubella virus vaccinePfCarilion New River Valley Medical Center SystemComment on above:Deferred: - IMMUNITYNEGATED: Highlighted row has not occurred!34-58-8862ieaycgi toxoid, reduced diphtheria toxoid, and acellular pertussis vaccine, adsorbedChildren's Hospital of The King's Daughters SystemComment on above:Deferred: - RECEIVED 02/12/18NEGATED: Highlighted row has not occurred!33-87-6274sbosuvong virus vaccineChildren's Hospital of The King's Daughters SystemComment on above:Deferred: - IMMUNITY Payers DatePayer CategoryPayerPoly [id number] 2023Blue Cross Blue ShieldBCBS Member Subscriber Plan / Payer (Effective 2022- Present) Name: Michelle Zuluaga Member ID: [id number] Relation to Subscriber: Self Name: Michelle Zuluaga Subscriber ID: [id number] PayerID: Not on file Type: Not on file Address: [facility] [address] [place] [id number] 03-08-7046GnbbNorthern [facility] Managed Care - PPOANTHEM [id number].5[id number] [id number] 2.160.2.10188[id number] 2.16.1.323008.3.57[id number] 2.0.1.148499.3.57[id number] 2.0.1.289733.3.57[id number] 2..1.750714.3.57[id number] 2..1.141904.3.57[id number] 2..1.250732.3.57[id number] 2.16840.1.021602.3.57[id number] 2.160.1.872227.3.57[id number] 2.160.1.610238.3.57[id number] 2.840.1.918911.3.57[id number] 2.16.840.1.145725.3.57[id number] 2.0.1.680240.3.57[id number] 2.0.1.711755.3.57[id number] 2..1.336655.19 MedicaidParamount [id number] [id number] 2.840.1.495720.3.579.2.531 Social History DateTypeDetailFacilityUnknown if ever smokedNosoutheast missouri hospital [employer] Other Start: 11-24-2020 End: 55-11-6074Fcw Assigned At [facility] SystemStart: 09-08-2018 End: 06-71-4793Nuhdeui smoking status NHISNever smoked tobacco (finding) [facility] Centertart: 35-53-6437Qsr Assigned At [facility] Hospitaltart: 19-62-8779Cioiito use and exposure Smokeless tobacco non-userToledo Hospital SystemStart: 08-27-2024 End: 91-94-9397Lqoodlktv beverage intakeCurrent drinker of alcohol (finding) [facility] SystemStart: 11-24-2020 End: 50-73-8031Bdnsqcx of Social functionToledo Hospital SystemAdolescent depression screening iquzfniifw2JomTynkpa Health SystemStart: 30-19-4657Ymqhzfm CommentsocialToledo Hospital SystemStart: 05-19-2015 End: 17-79-4154EcyRnuxgl (finding)[facility] SystemStart: 49-62-5532Wdtbbv identityIdentifies as female gender (finding)[facility] SystemStart: 40-91-2063Oyllvo orientationHeterosexual (finding)[facility] HospitalTobacco smoking status NHISTobacco smoking consumption unknownNOMS HealthcareStart: 99-16-7693Hbq assigned at birthNot on fileToledo Hospital SystemNEGATED: Highlighted [facility] HospitalNEGATED: Highlighted henry [facility] Medical Equipment Procedure CodeEquipment CodeEquipment Original TextEquipment IdentifierDates Bilateral Breast Implant-11/27/[id number]: 10-92-8267Zfjczxb on above: Description: PATIENT HAD BILATERAL BREAST AUGMENTATION IN 11/2016 Clinical Notes 07-23-2015 to 03-29-2025 Note Date & GjylPpgnLrkhofvg89-89-9156 History of Present illness Narrative* Rachel Malone, PATROL LADY - 03/29/2025 3:10 PM EDT Reason for Appointment: Patient ID: Michelle Zuluaga is a 39 y.o. female who presents for Pelvic Pain Patient presents today for Consult appointment. MEDICATIONS Current Outpatient Medications Medication Instructions FLUoxetine (PROZAC) 40 mg, Daily lisinopril 10 mg, Daily methylPREDNISolone (Medrol Dospak) 4 MG tablets Day 1: 6 tablets Day 2: 5 tablets Day 3: 4 tablets Day 4: 3 tablets Day 5: 2 tablets Day 6: 1 tablet norethindrone (MICRONOR) 0.35 mg, Daily RT valACYclovir (VALTREX) 500 mg, As needed ALLERGIES No Known Allergies PROBLEMS Active Ambulatory Problems Diagnosis Date Noted Pelvic pain in female 11/09/2024 Irregular periods/menstrual cycles 11/09/2024 Resolved Ambulatory Problems Diagnosis Date Noted No Resolved Ambulatory Problems No Additional Past Medical History HISTORY PAST MEDICAL HISTORY SOCIAL HISTORY No past medical history on file. Social History Tobacco Use Smoking status: Not on file Smokeless tobacco: Not on file Substance Use Topics Alcohol use: Not on file Drug use: Not on file FAMILY HISTORY No family history on file. SURGICAL HISTORY Past Surgical History: Procedure Laterality Date CERVICAL BIOPSY W/ LOOP ELECTRODE EXCISION 12/25/2024 LEEP excision ECTOPIC SURGERY ENDOMETRIAL ABLATION 12/25/2024 Madelyn SALPINGECTOMY Bilateral 12/25/2024 bilateral fallopian tubes TUBAL LIGATION Right REVIEW OF SYSTEMS Review of Systems: Review of Systems Constitutional: Negative. HENT: Negative. Eyes: Negative. Respiratory: Negative. Cardiovascular: Negative. Gastrointestinal: Negative. Genitourinary: Positive for pelvic pain. Musculoskeletal: Negative. Skin: Negative. Neurological: Negative. All other systems reviewed and are negative. Hematological: Negative. Endocrine: Negative. Allergic/Immunologic: Negative. OBJECTIVE Objective: Physical Exam Constitutional: Appearance: Normal appearance. She is well-developed. Genitourinary: Vulva normal. Cardiovascular: Rate and Rhythm: Normal rate and regular rhythm. Pulmonary: Effort: Pulmonary effort is normal. Breath sounds: Normal breath sounds. Abdominal: General: Bowel sounds are normal. There is no distension. Palpations: Abdomen is soft. Tenderness: There is no abdominal tenderness. There is no guarding or rebound. Musculoskeletal: General: No swelling. Normal range of motion. Right lower leg: No edema. Left lower leg: No edema. Neurological: Mental Status: She is alert and oriented to person, place, and time. Skin: General: Skin is warm and dry. Psychiatric: Mood and Affect: Mood normal. Behavior: Behavior normal. Vitals and nursing note reviewed. Exam conducted with a will call clerk present. Vitals: There is no height or weight on file to calculate BMI. BP: No LMP recorded. ASSESSMENT & PLAN ICD-10-CM 1. Pelvic pain in female R10.2 POCT urinalysis dipstick manually resulted POCT , urine manually resulted SURESWAB(R) ADVANCED VAGINITIS PLUS, TMA Neisseria gonorrhea DNA probe, direct CHLAMYDIA TRACHOMATIS (GENITO/STI) US Pelvis w/ TV SURESWAB(R) ADVANCED VAGINITIS PLUS, TMA Patient presents to office to discuss pelvic pain. Patiet voiced this is the same pain as back in December. Discussed Bentyl to see if medication helps. Vaginal cultures obtained and if medication helpsthen patient is to call office and then GI Referral will be made. If medication does not help then patient is also to reach out so then she could discuss possible surgical management. Patient to return to office as directed and also annual appointment. Documented by Rachel Malone LPN on behalf of: Ephraim Spencer DO documented in this encounterHawthorn Children's Psychiatric HospitalHxturpcbtt09-62-0454 Evaluation note* Diagnosis Onset Date Resolution Status Admit Date Anxiety acuteJune 2024 9:59amDepression with anxietyacuteJune 2024 9:59am Essential hypertensionacuteJune 2024 9:59am [facility] Work Phone: 1(360) 969-311103-20-2025 History of Present illness Narrative* JASMEET Trujillo - 12/31/2024 1:40 PM EDT Reason for Appointment: Patient ID: Michelle Zuluaga is a 39 y.o. female who presents for Post-op Visit Patient presents today for 1 Week Post Op Follow Up appointment. MEDICATIONS Current Outpatient Medications Medication Instructions azithromycin (Zithromax Z-Michael) 250 MG tablet As directed FLUoxetine (PROZAC) 40 mg, Daily lisinopril 10 mg, Daily methylPREDNISolone (Medrol Dospak) 4 MG tablets Day 1: 6 tablets Day 2: 5 tablets Day 3: 4 tablets Day 4: 3 tablets Day 5: 2 tablets Day 6: 1 tablet norethindrone (MICRONOR) 0.35 mg, Daily RT valACYclovir (VALTREX) 500 mg, As needed ALLERGIES No Known Allergies PROBLEMS Active Ambulatory Problems Diagnosis Date Noted Pelvic pain in female 11/09/2024 Irregular periods/menstrual cycles 11/09/2024 Resolved Ambulatory Problems Diagnosis Date Noted No Resolved Ambulatory Problems No Additional Past Medical History HISTORY PAST MEDICAL HISTORY SOCIAL HISTORY No past medical history on file. Social History Tobacco Use Smoking status: Not on file Smokeless tobacco: Not on file Substance Use Topics Alcohol use: Not on file Drug use: Not on file FAMILY HISTORY No family history on file. SURGICAL HISTORY Past Surgical History: Procedure Laterality Date CERVICAL BIOPSY W/ LOOP ELECTRODE EXCISION 12/25/2024 LEEP excision ECTOPIC SURGERY ENDOMETRIAL ABLATION 12/25/2024 Madelyn SALPINGECTOMY Bilateral 12/25/2024 bilateral fallopian tubes TUBAL LIGATION Right REVIEW OF SYSTEMS Review of Systems: Review of Systems Constitutional: Negative. HENT: Negative. Eyes: Negative. Respiratory: Negative. Cardiovascular: Negative. Gastrointestinal: Negative. Genitourinary: Negative. Musculoskeletal: Negative. Skin: Negative. Neurological: Negative. All other systems reviewed and are negative. Hematological: Negative. Endocrine: Negative. Allergic/Immunologic: Negative. OBJECTIVE Objective: Physical Exam Constitutional: Appearance: Normal appearance. She is normal weight. HENT: Head: Normocephalic. Cardiovascular: Rate and Rhythm: Normal rate. Pulses: Normal pulses. Pulmonary: Effort: Pulmonary effort is normal. Breath sounds: Normal breath sounds. Abdominal: Palpations: Abdomen is soft. Musculoskeletal: General: Normal range of motion. Neurological: General: No focal deficit present. Mental Status: She is alert and oriented to person, place, and time. Psychiatric: Mood and Affect: Mood normal. Behavior: Behavior normal. Thought Content: Thought content normal. Judgment: Judgment normal. Vitals and nursing note reviewed. Vitals: There is no height or weight on file to calculate BMI. BP: 94/76 No LMP recorded. ASSESSMENT & PLAN ICD-10-CM 1. Postoperative follow-up Z09 2. URI, acute J06.9 azithromycin (Zithromax Z-Michael) 250 MG tablet methylPREDNISolone (Medrol Dospak) 4 MG tablets Post Op Follow Up: Patient presents today for a postop follow up after having a Bilateral Laparoscopic Salpingectomy with madelyn ablation performed at [facility] with Dr. Spencer. Patient is healing well and shows no signs or symptoms of infection. Pathology results was reviewed with the patient in great detail and all restrictions have been lifted. Follow Up: Patient is to return to the office for annual exam unless needed otherwise. Documented by JASMEET Trujillo on behalf of: JASMEET Trujillo documented in this encounterHawthorn Children's Psychiatric [id number] History of Present illness Narrative* Gail Flores - 12/01/2024 8:50 AM EST Reason for Appointment: Patient ID: Michelle Zuluaga is a 39 y.o. female who presents for Pre-op Visit Patient presents today for Pre Op appointment. Patient is scheduled to undergo Da Gaby assisted Bilateral Laparoscopic Salpingectomy, Endometrial Ablation with Madelyn, LEEP, and Endometrial Biopsy (prior to procedure) on 12/25/[address] Spencer at [facility]. MEDICATIONS Current Outpatient Medications Medication Instructions FLUoxetine (PROZAC) 40 mg, Daily lisinopril 10 mg, Daily norethindrone (MICRONOR) 0.35 mg, Daily RT valACYclovir (VALTREX) 500 mg, As needed ALLERGIES No Known Allergies PROBLEMS Active Ambulatory Problems Diagnosis Date Noted Pelvic pain in female 11/09/2024 Irregular periods/menstrual cycles 11/09/2024 Resolved Ambulatory Problems Diagnosis Date Noted No Resolved Ambulatory Problems No Additional Past Medical History HISTORY PAST MEDICAL HISTORY SOCIAL HISTORY No past medical history on file. Social History Tobacco Use Smoking status: Not on file Smokeless tobacco: Not on file Substance Use Topics Alcohol use: Not on file Drug use: Not on file FAMILY HISTORY No family history on file. SURGICAL HISTORY Past Surgical History: Procedure Laterality Date ECTOPIC SURGERY TUBAL LIGATION Right REVIEW OF SYSTEMS Review of Systems: Review of Systems Constitutional: Negative. HENT: Negative. Eyes: Negative. Respiratory: Negative. Cardiovascular: Negative. Gastrointestinal: Negative. Genitourinary: Positive for menstrual problem and pelvic pain. Musculoskeletal: Negative. Skin: Negative. Neurological: Negative. All other systems reviewed and are negative. Hematological: Negative. Endocrine: Negative. Allergic/Immunologic: Negative. OBJECTIVE Objective: Physical Exam Constitutional: Appearance: Normal appearance. She is well-developed. Cardiovascular: Rate and Rhythm: Normal rate and regular rhythm. Pulmonary: Effort: Pulmonary effort is normal. Breath sounds: Normal breath sounds. Abdominal: General: Bowel sounds are normal. There is no distension. Palpations: Abdomen is soft. Tenderness: There is no abdominal tenderness. There is no guarding or rebound. Musculoskeletal: General: No swelling. Normal range of motion. Right lower leg: No edema. Left lower leg: No edema. Neurological: Mental Status: She is alert and oriented to person, place, and time. Skin: General: Skin is warm and dry. Psychiatric: Mood and Affect: Mood normal. Behavior: Behavior normal. Vitals and nursing note reviewed. Exam conducted with a will call clerk present. Vitals: There is no height or weight on file to calculate BMI. BP: 116/84 Patient's last menstrual period was 10/05/2024. ASSESSMENT & PLAN ICD-10-CM 1. Pre-op examination Z01.818 2. Request for sterilization Z30.2 3. Menorrhagia with regular cycle N92.0 4. Abnormal uterine bleeding N93.9 5. Pelvic pain in female R10.2 6. Cervical high risk HPV (human papillomavirus) test positive R87.810 Pre Op: Patient is doing well but has desire for sterilization and has complaints of bleeding, pelvic pain and a history of abnormal paps. Patient has tried hormone therapy in the past but all attempts to subside patients issues of bleeding have failed. I have discussed conservative management vs. surgicalmanagement with the patient in detail and patient desires surgical management at this time. Patienthas voiced understanding that a Bilateral Salpingectomy is considered to be permanent and patient will undergo Da Gaby assisted Bilateral Laparoscopic Salpingectomy, Endometrial Ablation with Madelyn, LEEP, and Endometrial Biopsy (prior to procedure) on 12/25/2024. Surgical consents were signed, mmc was reviewed, and patient is to proceed to [facility] OR. Follow Up: Patient is to follow up between 1-2 weeks post op to assess proper healing and recovery from procedure. Documented by Holley Leon LPN on behalf of: Ephraim Spencer DO documented in this encounterHawthorn Children's Psychiatric [id number] History of Present illness Narrative* Rachel Malone LPN - 11/09/2024 1:30 PM EST Reason for Appointment: Patient ID: Michelle Zuluaga is a 39 y.o. female who presents for Gynecologic Exam Patient presents today for Consult appointment. MEDICATIONS Current Outpatient Medications Medication Instructions FLUoxetine (PROZAC) 40 mg, Daily lisinopril 10 mg, Daily norethindrone (MICRONOR) 0.35 mg, Daily RT valACYclovir (VALTREX) 500 mg, As needed ALLERGIES No Known Allergies PROBLEMS Active Ambulatory Problems Diagnosis Date Noted Pelvic pain in female 11/09/2024 Resolved Ambulatory Problems Diagnosis Date Noted No Resolved Ambulatory Problems No Additional Past Medical History HISTORY PAST MEDICAL HISTORY SOCIAL HISTORY History reviewed. No pertinent past medical history. Social History Tobacco Use Smoking status: Not on file Smokeless tobacco: Not on file Substance Use Topics Alcohol use: Not on file Drug use: Not on file FAMILY HISTORY No family history on file. SURGICAL HISTORY Past Surgical History: Procedure Laterality Date ECTOPIC SURGERY TUBAL LIGATION Right REVIEW OF SYSTEMS Review of Systems: Review of Systems Genitourinary: Positive for pelvic pain and vaginal pain. All other systems reviewed and are negative. OBJECTIVE Objective: Physical Exam Genitourinary: No vaginal prolapse present. Vitals: There is no height or weight on file to calculate BMI. BP: 100/60 Patient's last menstrual period was 10/05/2024. ASSESSMENT & PLAN ICD-10-CM 1. Pelvic pain in female R10.2 Patient presents today for 2nd opinion for pelvic pain/ pelvic congestion syndrome. Reviewed patients CT scan and discussed options. Discussed surgical and non-surgical management. Patient currently only has 1 tube and discussed unilateral salpingectomy and endometrial ablation. Patient has good pelvic support, no signs of cystocele, no signs or rectocele. Discussed surgical procedure to assess what could cause heavy cycles. Patient has history of abnormal PAP smears for HPV. Patient has left fallopian tube and ovary present. Patient will proceed to OR for management (LEEP, BS and endometrialablation) and will discuss dates with Surg Nurse prior to leaving office today. Documented by Rachel Malone LPN on behalf of: Ephraim Spencer DO documented in this encounterHawthorn Children's Psychiatric [id number] Miscellaneous Notes* Telephone Encounter - DERICK Lynn - 08/29/2024 11:46 AM EST Call to pt. To discuss vaginitis results positive for BV and yeast. Pt. Relates symptoms have improved but desires Rx. Discussed how to take medication and avoidance of ETOH. Verified allergies and pharmacy. Pt. Verbalized understanding. documented in this encounterTwin City Hospital11-16-2024 Telephone encounter Note* Telephone Encounter - DERICK Lynn - 08/29/2024 11:46 AM EST Call to pt. To discuss vaginitis results positive for BV and yeast. Pt. Relates symptoms have improved but desires Rx. Discussed how to take medication and avoidance of ETOH. Verified allergies and pharmacy. Pt. Verbalized understanding. [facility]11-14-2024 History of Present illness Narrative* DERICK Lynn - 08/27/2024 2:30 PM EST Michelle Zuluaga is a 39 y.o.female. No LMP recorded. She presents vaginal discharge that started today that is thick, yellow-green and she has mild abdominal discomfort. She denies changes to environmental factors such as soap or detergent. She cleanses external only. She denies having any dysuria. 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 FLUoxetine (PROzac) 20 mg capsule Take 2 capsules (40 mg total) by mouth in the morning. lisinopriL (PRINIVIL,ZESTRIL) 10 mg tablet Take 1 tablet (10 mg total) by mouth in the morning. medical supply, miscellaneous ([facility] by miscellaneous route. For acne (Patient not taking: Reported on 06/26/2022) minocycline (MINOCIN,DYNACIN) 100 mg capsule Take 100 mg by mouth daily. (Patient not taking: Reported on 06/26/2022) norethindrone (MICRONOR) 0.35 mg tablet Take 1 tablet (0.35 mg total) by mouth in the morning. 28 tablet 12 SUMAtriptan (IMITREX) 25 mg tablet Take 25 mg by mouth once as needed for migraine. May repeat in 2hours if unresolved. Do not exceed 200 mg in 24 hours. (Patient not taking: Reported on 07/31/2022) topiramate (TOPAMAX) 50 mg tablet Take 1 tablet (50 mg total) by mouth in the morning and 1 tablet (50 mg total) before bedtime. (Patient not taking: Reported on 09/03/2023) valACYclovir (VALTREX) 500 mg tablet Take 1 tablet (500 mg total) by mouth in the morning and 1 tablet (500 mg total) before bedtime. 60 tablet 3 No current facility-administered medications for this visit. ALLERGIES No Known Allergies Review of Systems As noted in HPI Objective BP (!) 122/98 Ht 157.5 cm (5' 2 ) Wt 64.9 kg (143 lb) BMI 26.16 kg/m Physical Exam Vitals and nursing note reviewed. Constitutional: Appearance: Normal appearance. She is normal weight. HENT: Head: Normocephalic and atraumatic. Eyes: Conjunctiva/sclera: Conjunctivae normal. Pulmonary: Effort: Pulmonary effort is normal. Abdominal: Tenderness: There is no right CVA tenderness or left CVA tenderness. Genitourinary: General: Normal vulva. Exam position: Lithotomy position. Pubic Area: No rash or pubic lice. Labia: Right: No rash, tenderness, lesion or injury. Left: No rash, tenderness, lesion or injury. Urethra: No prolapse, urethral pain, urethral swelling or urethral lesion. Vagina: No signs of injury and foreign body. Vaginal discharge present. No erythema, tenderness, bleeding, lesions or prolapsed vaginal bear. Cervix: No discharge, friability, lesion, erythema, cervical bleeding or eversion. Comments: Small amt. Of yellow discharge Skin: General: Skin is warm and dry. Neurological: General: No focal deficit present. Mental Status: She is alert. Psychiatric: Mood and Affect: Mood normal. Behavior: Behavior normal. Assessment/Plan: Michelle was seen today for vaginal discharge. Diagnoses and all orders for this visit: Vaginal discharge - Chlamydia/GC by PCR Sachi Swab; Future - Vaginitis Panel PCR; Future Acute vaginitis - Chlamydia/GC by PCR Sachi Swab; Future - Vaginitis Panel PCR; Future Discussed use of cotton underwear only, sleeping w/out underwear, use of only mild soap externally Will await culture results prior to treatment ALEJANDRA Mccarty APRN, CNM Gayla M Sholey, APRN-CNM 08/27/24 [id number] [facility]* Encounter Date Diagnosis Assessment Notes Treatment Notes Treatment Clinical Notes Jun, Depression with anxiety (ICD-10 - F41.8) No suicidal or homicidal ideations. Patient is much better controlled with Fluoxetine 40 mg daily and Buspar. Will continue this. Medication profile and possible SE reviewed with patient. Take as prescribed. Jun,Essential hypertension (ICD-10 - I10) She was recently started on Lisinopril 10 mg daily and dx with HTN by ER and her blood pressures are running very well. Her BP is very well controlled now with this medication and she is tolerating well without SE. Repeat lab work was done and looked good. Controlling her BP has significantly improved her migraines and she has not had any migraines since. Medication profile and possible SE reviewe d with patient. Take as prescribed. Follow up in 4 months to see how she is doing with this. Take medication as prescribed, keep follow up appointments, get any testing that's been ordered done in a timely fashion. Do not smoke. Call if any questions or problems. For Hypertension: Patient is advised to work on healthy diet choices and appropriate servings, weight control, regular exercise as directed, and salt avoidance. Monitor blood pressures at home and call if above target. Jun,Migraine without aura and without status migrainosus, not intractable (ICD-10 - G43.009) Migraines has stopped since controlling BP. Will wean her off of Topamax, weaning schedule reviewedwith her. Notify office should she need anything further with this. She will keep Ubrelvy on hand should she need it. [facility] 08-29-2023 Evaluation note* Encounter Date Diagnosis Assessment Notes Treatment Notes Treatment Clinical Notes May, Depression with anxiety (ICD-10 - F41.8) No suicidal or homicidal ideations. Patient is much better controlled with Fluoxetine 40 mg daily and Buspar. Will continue this. Medication profile and possible SE reviewed with patient. Take as prescribed. May,Essential hypertension (ICD-10 - I10) She was recently started on Lisinopril 10 mg daily and dx with HTN by ER. Her BP is very well controlled now with this medication and she is tolerating well without SE. Will have her complete lab work in 4 weeks. This is ordered today. Controlling her BP has significantly improved her migraines; however, she was given Imitrex in the ER. Discussed with her that she is not to take triptans with HTN. Will switch her to PRN Ubrelvy and continue her Topamax daily. Rx sent today. Medication profile and possible SE reviewed with patient. Take as prescribed. Follow up in 4 weeks to see how she is doing with this. May,Migraine without aura and without status migrainosus, not intractable (ICD-10 - G43.009) Cannot take Imitrex due to HTN. Ubrelvy ordered today. See treatment plan under HTN. [facility] 03-16-2023 Evaluation note* Encounter Date Diagnosis Assessment Notes Treatment Notes Treatment Clinical Notes Dec, Dysuria (ICD-10 - R30.0) [facility] 03-16-2023 Evaluation note* Encounter Date Diagnosis Assessment Notes Treatment Notes Treatment Clinical Notes Dec, Acute UTI (ICD-10 - N39.0) [facility] 12-26-2022 Evaluation note* Encounter Date Diagnosis Assessment Notes Treatment Notes Treatment Clinical Notes Sep, Right acute otitis media (ICD-10 - H66.91) Ear infections are often a secondary infection caused from an URI, the flu or allergies. Take medication as directed. Complete all doses, even if you feel better. Tylenol or ibuprofen can help with pain. Warm pack to area for comfort helps as well. Follow up with primary care provider if no improvement of symptoms. [facility] 11-30-2022 Evaluation note* Encounter Date Diagnosis Assessment Notes Treatment Notes Treatment Clinical Notes Aug, Acute vaginitis (ICD-10 - N76.0) Aug,ther specified bacterial agents as the cause of diseases classified elsewhere (ICD-10 - B96.89) [facility] 09-08-2022 Evaluation note* Encounter Date Diagnosis Assessment Notes Treatment Notes Treatment Clinical Notes Jun, Migraine without aur a and without status migrainosus, not intractable (ICD-10 - G43.009) Migraines are triggered with increased stressors. She was started on Topamax 25 mg daily, has gotten mild relief. However, will increase to 50 mg daily to get more relief. Medication profile and possible SE reviewed with patient. Take as prescribed. Follow up in 6 weeks to see how she is doing, sooner if needed. Jun,epression with anxiety (ICD-10 - F41.8) No suicidal or homicidal ideations. Patient is much better controlled with Fluoxetine 40 mg daily and Buspar. Will continue this. Medication profile and possible SE reviewed with patient. Take as prescribed. Follow up in 6 weeks to see how she is doing, sooner if needed. Jun,Elevated blood pressure reading without diagnosis of hypertension (ICD-10 - R03.0) Blood pressure is stable at this time since getting anxiety and depression better controlled. She has restarted control due to heavy periods and her blood pressure has remained stable. Will have her follow up in the office in 6 weeks to see how she is doing. Sooner if needed. Keep track of bpat home and notify office should BP > 140/90. [facility] 07-28-2022 Evaluation note* Encounter Date Diagnosis Assessment Notes Treatment Notes Treatment Clinical Notes Apr, Migraine without aur a and without status migrainosus, not intractable (ICD-10 - G43.009) Migraines are triggered with increased stressors. Stop triptan due to elevated blood pressure. Stopbirth control in hopes of helping blood pressure as well. Start Topamax 25 mg daily to better control migraines and she is getting these a few times per week lasting a day or more. Medication profileand possible SE reviewed with patient. Take as prescribed. Follow up in 6 weeks to see how she is doing, sooner if needed. Apr,2Depression with anxiety (ICD-10 - F41.8) No suicidal or homicidal ideations. Patient is not well controlled with Fluoxetine 20 mg due to increased life stressors. Will increase to 40 mg daily and continue Buspar. Will obtain lab work. Medication profile and possible SE reviewed with patient. Take as prescribed. Follow up in 6 weeks to seehow she is doing, sooner if needed. Apr,Elevated blood pressure reading without diagnosis of hypertension (ICD-10 - R03.0) Stop control and triptan as this is only worsening increased blood pressure. Blood pressure is for the most part due to increased stressors. Will get better control of her depression/anxiety with changes to these medications. Will presume blood pressure will improve with these changes but will have her follow up in the office in 6 weeks to see how she is doing. Sooner if needed. Keep track of bp at home and notify office should BP > 140/90. [facility] 07-14-2022 Evaluation note* Encounter Date Diagnosis Assessment Notes Treatment Notes Treatment Clinical Notes Apr, Depression with anxiety (ICD-10 - F41.8) [facility] 05-16-2022 Evaluation note* Encounter Date Diagnosis Assessment Notes Treatment Notes Treatment Clinical Notes February, Depression with anxiety (ICD-10 - F41.8) [facility] 03-10-2022 Evaluation note* Encounter Date Diagnosis Assessment Notes Treatment Notes Treatment Clinical Notes Dec, Contact with and (coleman spected) exposure to other viral communicable diseases (ICD-10 - Z20.828) Today test was performed in office. Results are currently negative. That does not mean that you will not develop COVID or do not currently have a low viral count of COVID. The rapid test works best if symptoms have been over 72 hours and the results can vary if you are asymptomatic There is a higher chance of false negative results to occur if testing is performed too soon. It is recommended thateven if results are negative and you have been exposed to someone that has COVID that you follow current CDC recommendations. These can be found at CDC.GOV. Follow up with primary care provider if symptoms persist or do not improve *VIRAL URI HANOUT GIVEN ON OTC TREATMENTS, FOLLOW UP AND WHEN TO SEEK EMERGENCY TREATMENT Dec,cute non-recurrent maxillary sinusitis (ICD-10 - J01.00) Symptoms appear viral today. Bacteria infections take several days to weeks of symptoms to develop.Use saline nasal spray before prescription one and you have better results. Recommend OTC medications such as Mucinex DM, Delsym, Cepocal Lozenges Continue tylenol/ibuprofen for general discomfort. Encourage fluids. Symptoms should improve within the next 10-14 days. If no improvement of symptoms in 14 days call primary care provider to discuss antibiotic therapy Dec,2Other Additional time spent conducting pre-visit phone call, screening for symptoms, instructions on social distancing, application and removal of PPE, and cleaning of examination room, equipment and supplies was preformed. Patient education given for testing methodology and results. Patient care instructions given in writting by [facility] document. [facility] 10-10-2015 History general Narrative - Reported* Type Description Date Medical History anxiety Medical Historymigraine headacheSurgical [id number] Historybreast implants-2016Surgical HistoryEctopic Dfoheeqly12/24/2020 Hospitalization Historychildbirth [facility] Other Evaluation noteNo InformationNort [employer] Other Evaluation note* Diagnosis Onset Date Resolution Status BMI 26.0-26.9,adult acuteEssential hypertensionacuteMigraine headacheacuteWell adult examacute [facility] Work Phone: Evaluation note* Diagnosis Pelvic pain- Primary Abnormal pelvic [facility] Diagnosis HSV (herpes simplex virus) anogenital infection Herpes simplex without mention of complication [facility] Diagnosis Pelvic pain in female Unspecified symptom associated with female genital organs Irregular periods/menstrual cycles documented in this encounter [facility]* Diagnosis Vaginal discharge- Primary Leukorrhea, not specified as infective Acute vaginitis Unspecified vaginitis and vulvovaginitis [facility]* Diagnosis BV (bacterial vaginosis)- Primary Unspecified vaginitis and vulvovaginitis Yeast infection of the vagina Candidiasis of vulva and vagina [facility] Diagnosis Surveillance of contraceptive pill- Primary Surveillance of previously prescribed contraceptive pill [facility] Diagnosis Pre-op examination Request for sterilization Menorrhagia with regular cycle Abnormal uterine bleeding Unspecified disorder of menstruation and other abnormal bleeding from female genital tract Pelvic pain in female Unspecified symptom associated with female genital organs Cervical high risk HPV (human papillomavirus) test positive Cervical high risk human papillomavirus (HPV) DNA test positive documented in this encounter [facility] HealthcareEvaluation noteNo assessment information availableCincinnati [facility] Work Phone: Evaluation note* Diagnosis Postoperative follow-up Follow-up examination, following unspecified surgery URI, acute Acute upper respiratory infections of unspecified site documented in this encounter [facility] HealthcareEvaluation note* Diagnosis Onset Date Resolution Status Admit Date Anxiety acuteJune 2024 9:59amDepression with anxietyacuteJune 2024 9:59am [facility] Work Phone: Evaluation note* Diagnosis Pelvic pain in female Unspecified symptom associated with female genital organs documented in this encounter [facility] HealthcareInstructionsNot on filedocumented in this encounterProMediwi Health SystemInstructionsNot on filedocumented in this encounterProMediwi Health SystemInstructionsNot on filedocumented in this encounterProMediwi Health SystemInstructionsNot on filedocumented in this encounterProD.[facility]. [facility] Reason for referral (narrative)No reason for referral information available [facility] Work Phone: Summary Purpose Family History Relationship Condition Age at Onset Recorded Date/T dhiraj brother Unknown family memberDeceasedUnknowngrandparentHistory of strokeUnknownDeceasedUnknown Diabetes mellitusUnknownHypertensionUnknowngrandparentDeceasedUnknownmother Family history of mental disorderUnknownsisterMigraineUnknown Advance Directives Advance Directive Response Recorded Date/ Time Advance Directives No January 13 9:42am Date ActivatedDate InactivatedComments03/12/2018 7:26 PM03/14/2018 11:46 PMDate ActivatedDate InactivatedComments03/12/2018 7:26 PM03/14/2018 11:46 PM Chief Complaint and Reason for Visit Chief Complaint Amb Documentation Discuss medicationReason for VisitBMI 26.0-26.9,adult Essential hypertension Migraine headache Well adult exam Chief Complaint Admit Date Unknown December 25, 2024 3:5 9pm Chief Complaint Admit Date Unknown December 25, 2024 3:5 9pm Est Care March 17, 2025 9:59a m Reason for Visit Admit Date Anxiety March 17, 2025 9:59a m Depression with anxiety March 17, 2025 9 :59am Chief Complaint Admit Date Est Care March 17, 2025 9:59a m Wellness April 26, 2025 10:3 2am Reason for Visit Admit Date Anxiety March 17, 2025 9:59a m Depression with anxiety March 17, 2025 9 :59am Essential hypertension March 17, 2025 9: 59am Additional Source Comments INFORMATION SOURCE (unrecogn ized section and content) DATE CREATED AUTHOR 04/04/2021 [facility] DATE CREATED AUTHOR AUTHOR'S ORGANIZ ATION 01/05/2023 [facility] DATE CREATED AUTHOR AUTHOR'S ORGANIZ ATION 08/30/[address] [facility] DATE CREATED AUTHOR AUTHOR'S ORGANIZ ATION 10/04/2024 [facility] DATE CREATED AUTHOR AUTHOR'S ORGANIZ ATION 11/04/2024 [facility] DATE CREATED AUTHOR AUTHOR'S ORGANIZ ATION 03/11/2025 [facility] DATE CREATED AUTHOR AUTHOR'S ORGANIZ ATION 03/31/2025 [facility] EPIC REASON FOR VISIT (unrecogniz ed section and content) ReasonCommentsMed Change RequestReasonCommentsGynecologic ExamReasonComments Vaginal DischargePt is here for vaginal discharge.ReasonCommentsPre-op Visit ReasonCommentsPost-op VisitReasonCommentsPelvic Pain Care Teams (unrecognized sec tion and content) Team Status: Active Member Role Status Dates Yolanda Salazar DNP Primary Care Provider Active Team Status: Inactive Member Role Status Dates Yolanda Salazar DNP Primary Care Provider Active Start: December 25, 2024 End: December 25dileep Spencer DOAttnicolette ProviderActiveStart: December 25, 2024 End: December 25, 2024 Team Status: Active Member Role Status Dates Beau OPLANCO DO Primary Care Provider Active Start: February 27, 2024 Aishwarya Kaye ProviderActiveStart: February 27, 2024 Team Status: Inactive Member Role Status Dates Yolanda Salazar DNP Primary Care Provid er, Attending Provider Active Start: April 23, 2024 End: April 23, 2024Team MemberRelationshipSpecialtyStart DateEnd Date Yolanda Salazar DNP [address] [place] [address] PCP - GeneralNurse Practitioner05/23/21Team MemberRelationshipSpecialtyStart Date End Date Yolanda Salazar DNP [address] [place] [address] PCP - GeneralNurse Practitioner05/23/21Team MemberRelationshipSpecialtyStart Date End Date Yolanda Salazar DNP [address] [place] [address] PCP - GeneralNurse Practitioner05/23/21Team MemberRelationshipSpecialtyStart Date End Date Yolanda Salazar DNP [address] [place] [address] PCP - GeneralNurse Practitioner05/23/21 Team Status: Active Member Role Status Dates Yolanda Yancey APRN APPLICATIONS SYSTEMS ANALYST-C Primary Care Provider Active Team Status: Inactive Member Role Status Dates Yolanda Yancey APRN APPLICATIONS SYSTEMS ANALYST-C Primary Care Provider, Attending Provider Active Start: March 17, 2025 End: March 17, 2025 Team Status: Inactive Member Role Status Dates Yolanda Yancey APRN APPLICATIONS SYSTEMS ANALYST-C Primary Care Provider Active Start: March 17, 2025 End: March 17, 2025Yolanda Yancey APRN APPLICATIONS SYSTEMS ANALYST-CAttending ProviderActiveStart: March 17, 2025 End: March 17, 2025 Team Status: Inactive Member Role Status Dates Yolanda Yancey APRN APPLICATIONS SYSTEMS ANALYST-C Primary Care Provider Active Start: April 26, 2025 End: April 26, 2025Yolanda Yancey APRN APPLICATIONS SYSTEMS ANALYST-CAttending ProviderActive Start: April 26, 2025 End: April 26, 2025 Goals (unrecognized section and content) Goals may be documented in a n alternate section FOR RECORDS PERTAINING TO PATIENTS WHO ARE OR HAVE BEEN ENROLLED IN A CHEMICAL DEPENDENCY/SUBSTANCEABUSE PROGRAM, SOME INFORMATION MAY BE OMITTED. This clinical summary was aggregated from multiple sources. Caution should be exercised in using it in the provision of clinical care. This summary normalizes information from multiple sources, and as a consequence, information in this document may materially change the coding, format and clinical context of patient data. In addition, data may be omitted in some cases. CLINICAL DECISIONS SHOULD BE BASED ON THE PRIMARY CLINICAL RECORDS. [facility]. provides no warranty or guarantee of the accuracy or completeness of information in this document.
--- OUTSIDE RECORDS SUMMARY | 2025-08-22 09:01 | XMS_ITS | Clinical Summary ---
Author Organization [employer] tem Address [id number] [address] [place] [address] Care Team Providers Care Patient Sitter Name Role Phone Yolanda Salazar DNP Primary Care Provider Allergies No known active allergies Medications MedicationSigDispense QuantityRefillsLast FilledStart DateEnd DateStatus FLUoxetine (PROzac) 20 mg capsule Take 2 capsules (40 mg total) by mouth in the morning.Active SUMAtriptan (IMITREX) 25 mg tablet Take 1 tablet (25 mg total) by mouth once as needed for migraine. May repeat in 2 hours if unresolved. Do not exceed 200 mg in 24 hours.Active minocycline (MINOCIN,DYNACIN) 100 mg capsule Take 100 mg by mouth daily.Active medical supply, miscellaneous ([employer]) by miscellaneous route. ClindamycinActive topiramate (TOPAMAX) 50 mg tablet Take 1 tablet (50 mg total) by mouth in the morning and 1 tablet (50 mg total) before bedtime.Active lisinopriL (PRINIVIL,ZESTRIL) 10 mg tablet Take 1 tablet (10 mg total) by mouth in the morning.3Active norethindrone (MICRONOR) 0.35 mg tablet Indications:Surveillance of contraceptive pillTake 1 tablet (0.35 mg total) by mouth in the morning. 84 tablet 4Active valACYclovir (VALTREX) 500 mg tablet Indications:HSV (herpes simplex virus) anogenital infectionAT THE FIRST SIGN OF AN OUTBREAK TAKE ONE TABLET BY MOUTH TWICE DAILY FOR THREE DAYS 180 tablet 5Active Active Problems ProblemNoted DateDiagnosed DateHx of ectopic lzpwopneh54/10/2021 Overview (05/23/2021): 2019 H/O bilateral breast xoqqfymx71/10/2645Xtsskft49/11/2018 Overview (04/23/2018): Taking prozac Immunizations ImmunizationAdministration DatesNext BnqHRH6103/13/2018(Deferred: - IMMUNITY)Tdap 03/13/2018(Deferred: - RECEIVED 02/12/18),02/12/20182925Hoinuyhpo61/31/2018(Deferred: - IMMUNITY) Family History Medical HistoryRelationNameCommentsDiabetesMaternal GrandmotherHeart failure Maternal GrandmotherBreast cancerNeg HxOvarian cancerNeg HxRelationNameStatus CommentsMaternal Grandmother Social History Tobacco UseTypesPacks/DayYears UsedDateSmoking Tobacco: NeverSmokeless Tobacco: Never Tobacco Cessation:Counseling Given: Not Answered Alcohol UseStandard Drinks/WeekCommentsYes0 (1 standard drink = 0.6 oz pure alcohol)socialPHQ-2AnswerDate RecordedTotal Vnsjn238/18/2024ChildcareAnswerDate TjjezgigFpjmdraeyLciclwj42/12/2019EmploymentAnswerDate RecordedEmploymentUnknown 03/25/2019Hunger ScreeningAnswerDate RecordedWithin the past 12 months we worried whether our food would run out before we got money to buy more.Never True09/30/2024Within the past 12 months the food we bought just didn't last and we didn't have money to get more.Never True4Purpose - LifeAnswerDate RecordedPurpose and direction in mthvWrpiebz73/11/2021CommentsNoSex and Gender InformationValueDate RecordedSex Assigned at TdssqZcztnd91/23/2024 12:30 PM ESTLegal LzfLgjmyi80/06/2015 12:04 PM EDTGender QvbudjjpCswrpu92/23/2024 12:30 PM ESTSexual RwwjjhqxnobSazxpmbr94/23/2024 12:30 PM EST Last Filed Vital Signs Vital SignReadingTime TakenCommentsBlood Ogbdxfuh975/8209/30/2024 3:23 PM EST Vffct6588 9:32 AM VEJXdjufvxxrqw80.2 ??C (99 ??F)03/14/2018 4:41 PM EDT Respiratory Wrbi4543 9:32 AM EDTOxygen Ldhawbeulc50%03/14/2018 2:00 AM EDTInhaled Oxygen Concentration--Rlkqyq69.1 kg (137 lb)09/30/2024 3:23 PM EST Qypkbl685.5 cm (5' 2 )09/30/2024 3:23 PM ESTBody Mass Index25.0609/30/2024 3:23 PM EST Plan of Treatment Health MaintenanceDue DateLast DoneCommentsCOVID-19 Vaccine ( season) /10/2020, 05/24/2021Influenza Ysxjfuw38/, 09/11/2018, 01/15/2017Adult BMI Follow Up Plan/dult BMI Sfdylwjxk34/4Depression Cfjbqqeid34/Tobacco Tetouhyhz39/4Pap Smear/, 09/30/2024, 09/03/2023, Additional history existsDTaP,Tdap and Td Vaccines (3 - Td or Tdap) , 01/15/2017 Medical Devices ImplantedTypeAreaManufacturerDevice IdentifierShelf Expiration DateModel / Serial / LotBilateral Breast Implant-11/27/2016 Implanted:11/27/2016 (Quantity not on file)Other ImplantDescription:PATIENT HAD BILATERAL BREAST AUGMENTATION IN 11/2016 Procedures Procedure NamePriorityDate/TimeAssociated DiagnosisCommentsHIGH RISK HPV W/MIAN Oyapoyr1409/30/2024 5:03 AM EST Cervical smear, as part of routine gynecological examination from Last 3 Months or Most Recently Relevant to Health Maintenance Results * (ABNORMAL) High risk HPV w/mian (09/30/2024 5:03 AM EST)ComponentValueRef RangeTest MethodAnalysis TimePerformed AtPathologist SignatureHpv specimen nwcjQxdpWlgp75/19/2024 5:03 AM [facility] 16Positive(A) Negative^Hjleabmm14/20/2024 7:[address] [facility] 18 NegativeNegative^Nlgjqpgm33/20/2024 7:[address] [facility] Other high risk hpvNegativeNegative^Uutfzoro38/20/2024 7:[address] [facility] LABComment: HPV types 31,33,35,39,45,52,56,58,59,66 and 68 DNA were undetectable. Specimen (Source)Anatomical Location / LateralityCollection Method / Volume Collection TimeReceived AippJYMHS30/18/2024 5:03 AM EST09/30/2024 5:07 AM EST Narrative Authorizing ProviderResult TypeResult StatusEmelyn Tran INDUSTRIAL PHOTOGRAPHER-CNPLAB BLOOD ORDERABLESFinal ResultPerforming OrganizationAddressCity/State/ZIP CodePhone Number [facility] [address] [place] [address] [facility] [address] [place] [address], [address] [place] [address] from Last 3 Months or Most Recently Relevant to Health Maintenance Insurance Advance Directives * Full Code (Latest Code Status on File) Date ActivatedDate InactivatedComments03/12/2018 7:26 PM03/14/2018 11:46 PM Care Teams Team MemberRelationshipSpecialtyStart DateEnd Date Yolanda Salazar, [address] [address] [place] [address] PCP - GeneralNurse Practitioner05/23/21
--- OUTSIDE RECORDS SUMMARY | 2025-08-22 09:01 | XMS_ITS | Clinical Summary ---
Author Organization [facility] Address [address] [place] [address] Care Team Providers Care Spindle Tester Name Role Phone Unavailable Primary Care Provider Unavailabl e Allergies No known active allergies Medications MedicationSigDispense QuantityRefillsLast FilledStart DateEnd DateStatus FLUoxetine (PROzac) 40 MG capsule Take 40 mg by mouth Daily4Active lisinopril 10 MG tablet Take 10 mg by mouth Daily5Active norethindrone (Micronor) 0.35 MG tablet Take 0.35 mg by mouth in the morning.4Active valACYclovir (Valtrex) 500 MG tablet Take 500 mg by mouth if needed (as needed)5Active methylPREDNISolone (Medrol Dospak) 4 MG tablets Indications:URI, acuteDay 1: 6 tablets Day 2: 5 tablets Day 3: 4 tablets Day 4: 3 tablets Day 5: 2 tablets Day 6: 1 tablet 21 tablet 5Active dicyclomine (Bentyl) 10 MG capsule Indications:Pelvic pain in femaleTake 1 capsule (10 mg) by mouth 3 (three) times a day as needed (pelvic pain) for up to 30 doses 30 capsule 5Active Active Problems ProblemNoted DateDiagnosed DatePelvic pain in snazeh2911/09/2024Irregular periods/menstrual iakhzf3611/09/2024 Social History Tobacco UseTypesPacks/DayYears UsedDateSmoking Tobacco: Never Assessed CommentsUnknownSex and Gender InformationValueDate RecordedSex Assigned at Not on fileLegal XoaDjufut32/15/2023 11:47 PM EDTGender IdentityNot on file Sexual OrientationNot on file Last Filed Vital Signs Vital SignReadingTime TakenCommentsBlood Dbdlnlpf55/7603/ 1:39 PM EDT Pulse--Ozqoeowppih26.5 ??C (95.9 ??F)12/31/2024 1:39 PM EDTRespiratory Rate-- Oxygen Saturation--Inhaled Oxygen Concentration--Htnpln14 kg (123 lb 6.4 oz) 12/31/2024 1:39 PM EDTHeight--Body Mass Index-- Plan of Treatment Health MaintenanceDue DateLast DoneCommentsCOVID-19 Vaccine ( season) /10/2020, 05/24/2021Influenza Vaccine (#1)/, 09/11/2018, 01/15/2017Pap Smear/, 09/03/2023, 09/03/2023 Cervical Cancer Rnkwoqgca45/18/2029HPV/Unluri10/, 09/03/2023, 05/23/2021, Additional history existsPneumococcal Vaccine: Pediatrics (0 to 5 Years) and At-Risk Patients (6 to 64 Years)Aged OutNo longer eligible based on patient's age to complete this topic Procedures Procedure NamePriorityDate/TimeAssociated DiagnosisCommentsPAP SMEARRoutine 09/03/2023 12:00 AM ESTfrom Last 3 Months or Most Recently Relevant to Health Maintenance Results * Pap Smear (09/03/2023 12:00 AM EST)Specimen (Source)Anatomical Location / LateralityCollection Method / VolumeCollection TimeReceived TimeSwabCervical swab / Unknown Narrative Authorizing ProviderResult TypeResult StatusVamshi MCMAHON CYTOLOGY ORDERABLESFinal ResultPerforming OrganizationAddressCity/State/ZIP CodePhone Number EXTERNAL LAB from Last 3 Months or Most Recently Relevant to Health Maintenance Insurance
--- OUTSIDE RECORDS SUMMARY | 2025-08-22 09:01 | XMS_ITS | Clinical Summary ---
Author Organization [facility] Address [address] [place] [address] Care Team Providers Care Carving Machine Operator Name Role Phone Unavailable Primary Care Provider Unavailabl e Medications No known medications Active Problems ProblemNoted DateDiagnosed DatePlastic surgery for unacceptable cosmetic wjtiknwifx90/14/2011 Social History Tobacco UseTypesPacks/DayYears UsedDateSmoking Tobacco: Never Assessed CommentsUnknownSex and Gender InformationValueDate RecordedSex Assigned at Not on fileLegal JioXoaapf53/02/2012 10:10 AM ESTGender IdentityNot on file Sexual OrientationNot on file Plan of Treatment Health MaintenanceDue DateLast DoneCommentsAnxiety Odlquomxa40/03/2005Depression Tkmhcpavx60/03/2005HIV Gytnzzdnl43/03/2005Hepatitis C Mfzdljpms65/03/2005 DTaP,Tdap,Td Vaccine (1 - Tdap)2006Hepatitis B Vaccine (1 of 3 - 19+ 3- dose series)2006Cervical Cancer Wstvrgplg11/03/2008HPV Vaccine (1 - 3-dose SCDM series)2014Covid-19 Vaccine ( - 2024- season)2025Influenza Vaccine (#1)2025
[2025-08-22] MEDS: CYCLOBENZAPRINE HCL 10 MG TABLET 5 MG PO (09:15)
[2025-08-22] MEDS: IBUPROFEN 400 MG TABLET PO (09:15)
[2025-08-22] MEDS: DEXAMETHASONE SOD PHOS 10 MG/ML VIAL IM (09:16)
--- NOTE | 2025-08-22 17:19 | ED.GENADUL1 ---
HPI HPI - General Adult General Chief complaint: Back Pain/Injury Stated complaint: BACK PAIN Time Seen by Provider: 08/22/25 08:53 Source: patient Mode of arrival: walk-in History of Present Illness HPI narrative: Patient is a 40-year-old female presenting to the emergency department for evaluation of a back spasm. Patient states that she rolled over in bed last night, reach for her phone, and felt an immediate spasm in the middle of her upper back. She took Tylenol and Motrin, which moderately helped her symptoms. She is requesting more pain medication and muscle relaxer. She states that specific movements, such as sitting upright, makes the pain worse. She denies any chest pain or shortness breath. No fevers or chills. No history of DVT/PE. No hemoptysis. No leg swelling. Related Data Home Medications ?Medication ?Instructions ?Recorded ?Confirmed fluoxetine 40 mg capsule 40 mg PO QPM 06/06/23 12/15/24 lisinopril 10 mg tablet 10 mg PO QPM 12/15/24 12/25/24 norethindrone (contraceptive) 0.35 0.35 mg PO DAILY 12/15/24 12/25/24 mg tablet (Incassia) valacyclovir 500 mg tablet 500 mg PO Q12H PRN outbreak 12/15/24 12/25/24 Previous Rx's ?Medication ?Instructions ?Recorded hydrocodone 5 mg-acetaminophen 325 1 tab PO Q4H PRN pain 4 days #16 12/25/24 mg tablet tabs ibuprofen 800 mg tablet 800 mg PO Q8H PRN pain 14 days #40 12/25/24 tabs cyclobenzaprine 5 mg tablet 5 mg PO BID PRN muscle spasm #6 08/22/25 tabs Allergies Allergy/AdvReac Type Severity Reaction Status Date / Time No Known Drug Allergies Allergy Verified 12/15/24 10:02 Opioid HPI Opioid Management Most Recent Opioid Data: Last Pain Scale 3 12/25/24, 18:13 Review of Systems ROS Status of ROS 10 or more systems reviewed and unremarkable except as noted in history and below [facility] Medical History (Updated 08/22/25 @ 09:43 by Louie Jackman DO) History of blood transfusion ?Z92.89 - Personal history of other medical treatment (ICD-10) Gestational diabetes ?O24.419 - Gestational diabetes mellitus in , unspecified control (ICD-10) Anemia ?D64.9 - Anemia, unspecified (ICD-10) Panic attacks ?F41.0 - Panic disorder [episodic paroxysmal anxiety] (ICD-10) Depression ?F32.A - Depression, unspecified (ICD-10) Anxiety ?F41.9 - Anxiety disorder, unspecified (ICD-10) Migraine ?G43.909 - Migraine, unspecified, not intractable, without status migrainosus (ICD-10) Hypertension ?I10 - Essential (primary) hypertension (ICD-10) Postoperative nausea and vomiting ?R11.2 - Nausea with vomiting, unspecified (ICD-10) ?Z98.890 - Other specified postprocedural states (ICD-10) Ectopic ?O00.90 - Unspecified ectopic without intrauterine (ICD-10) Cervical high risk HPV (human papillomavirus) test positive ?R87.810 - Cervical high risk human papillomavirus (HPV) DNA test positive (ICD-10) Pelvic pain ?R10.2 - Pelvic and perineal pain (ICD-10) Abnormal uterine bleeding (AUB) ?N93.9 - Abnormal uterine and vaginal bleeding, unspecified (ICD-10) Menorrhagia ?N92.0 - Excessive and frequent menstruation with regular cycle (ICD-10) Request for sterilization ?Z30.2 - Encounter for sterilization (ICD-10) Surgical History (Updated 12/15/24 @ 10:19 by Jess Merrill NP) H/O unilateral salpingectomy ?Z90.79 - Acquired absence of other genital organ(s) (ICD-10) History of breast augmentation ?Z98.82 - Breast implant status (ICD-10) Family History (Updated 12/15/24 @ 10:11 by Jess Merrill NP) Other Brain tumor Social History (Updated 12/15/24 @ 10:05 by Jess Merrill NP) Within the past year, how often did you have a drink containing alcohol: monthly or less Smoking status: Never smoker Non-prescribed substance use: denies use Previous occupational history: [employer] Highest level of school completed/degree received: Associate degree: academic program Little interest or pleasure in doing things: not at all Feeling down, depressed, or hopeless: not at all Exam Narrative Exam Narrative: CONSTITUTIONAL: Appears uncomfortable, answering questions and following commands appropriately SKIN: Was warm and dry. EYES: Sclerae white. EARS, NOSE, THROAT: Moist oral mucosa. RESPIRATORY: Clear to auscultation bilaterally, no wheezes, crackles, or stridor, no use of accessory muscles CARDIOVASCULAR: Normal rate and regular rhythm. There is no S3, S4, murmur, rub. GASTROINTESTINAL: Abdomen is nondistended. MUSCULOSKELETAL: There is reproducible tenderness to palpation throughout the paraspinal muscles of the upper back. NEUROLOGIC: Patient is awake and alert. Facies were symmetrical. Constitutional Vital Signs, click to edit/add: Last Vital Signs Pulse 111 H 08/22/25 08:55 Resp 18 08/22/25 08:55 BP 142/99 H 08/22/25 08:55 Pulse Ox 98 08/22/25 08:55 Course Vital Signs Vital signs: Vital Signs Pulse Rate 111 H 08/22/25 08:55 Respiratory Rate 18 08/22/25 08:55 Blood Pressure 142/99 H 08/22/25 08:55 Pulse Oximetry 98 08/22/25 08:55 Pulse Rate 111 H 08/22/25 08:55 Respiratory Rate 18 08/22/25 08:55 Blood Pressure 142/99 H 08/22/25 08:55 Pulse Oximetry 98 08/22/25 08:55 Medical Decision Making MDM Narrative Medical decision making narrative: Patient is a is a 40-year-old female presenting to the emergency department for treatment of back spasms that began last night when reaching for her phone. Her vital signs are significant for mild tachycardia, likely related to her acute pain. She is afebrile and hemodynamically stable. There is reproducible tenderness to palpation of the paraspinal muscles of the upper back. My clinical impression is that the patient symptoms are secondary to muscle spasm, musculoskeletal pain. I do not believe any imaging is required at this time. She is treated symptomatically with oral Flexeril, Motrin, and IM dexamethasone. On reevaluation, patient states she feels significantly improved. I do believe the patient is stable for discharge. They were instructed to follow up with her PCP for further. Return precautions were given including any new or worsening symptoms. They were given a prescription for Flexeril. Patient understands and agrees to the plan. FINAL IMPRESSION: #Acute muscle spasm of the upper back DISPOSITION: Discharged home CONDITION: Good Discharge Plan Discharge Chief Complaint: Back Pain/Injury Clinical Impression: Thoracic back pain Patient Disposition: Home, Self-Care Time of Disposition Decision: 09:42 Condition: Good Mode of Transportation: Private Vehicle Prescriptions / Home Meds: New cyclobenzaprine 5 mg tablet 5 mg PO BID PRN (Reason: muscle spasm) Qty: 6 0RF No Action fluoxetine 40 mg capsule 40 mg PO QPM norethindrone (contraceptive) [Incassia] 0.35 mg tablet 0.35 mg PO DAILY valacyclovir 500 mg tablet 500 mg PO Q12H PRN (Reason: outbreak) lisinopril 10 mg tablet 10 mg PO QPM ibuprofen 800 mg tablet 800 mg PO Q8H PRN (Reason: pain) 14 Days Qty: 40 0RF hydrocodone-acetaminophen 5-325 mg tablet 1 tab PO Q4H PRN (Reason: pain) 4 Days Qty: 16 0RF Print Language: Indonesian Instructions: Thoracic Pain (ED) Referrals: BERNARDO AREVALO [Primary Care Provider, Unknown] - 1 week Discharge Date/Time: 08/22/25 09:50
== END 2025-08-22 09:50 | disposition home or self-care (01) ==
PROVIDERS: Emergency Provider Student in an Organized Health Care Education/Training Program; PCP Nurse Practitioner Family
DX: M54.6 Pain in thoracic spine (principal); M62.830 Muscle spasm of back
CPT/HCPCS: 96372; 99284; J1100